=== PATIENT | female | born 1935 | race Caucasian/White ===

== ENCOUNTER 2018-06-03 08:45 | Emergency (ER) | payer OTHER ==
--- NOTE | 2018-06-03 09:17 | ER ---
Nurse's Notes [facility] Name: Shayy Gamble Age: 83 yrs Sex: Female : 1935 Arrival Date: 06/03/2018 Time: 08:48 Bed 13 Private MD: Buck Bermeo E Diagnosis: Mercer's Palsy (right) Presentation: 06/03 08:57 Presenting complaint: Patient states: started yesterday at 12 oclock i was trying to tw2 drink coffee with my sister and i noticed it was leaking out of the right side of my mouth, no arm or leg weakness. Transition of care: patient was not received from another setting of care. Onset of symptoms was June 02, 2018 at 12:00. Risk Assessment: Do you want to hurt yourself or someone else? Patient reports no desire to harm self or others. Initial Sepsis Screen: Does the patient meet any 2 criteria? No. Patient's initial sepsis screen is negative. Does the patient have a suspected source of infection? No. Patient's initial sepsis screen is negative. Care prior to arrival: None. pt states "i had no one to take me up here", pt educated as to 911 and the need for quick medical intervention". 08:57 Method Of Arrival: Wheelchair tw2 08:57 Acuity: ELLIS 3 tw2 Triage Assessment: 08:59 The onset of the patients symptoms was June 02, 2018 at 12:00. General: Appears in tw2 no apparent distress. obese, Behavior is calm, cooperative, appropriate for age. Pain: Denies pain. Neuro: Reports right sided facial droop, unable to blink right eye. Historical: - Allergies: 09:02 Sulfa (Sulfonamide Antibiotics); tw2 - PMHx: 09:02 Hyperlipidemia; Hypertension; tw2 - PSHx: 09:02 Cholecystectomy; ileostomy; tw2 - Immunization history:: Adult Immunizations. - Social history:: Smoking status: . - Ebola Screening: : Patient denies travel to an Ebola-affected area in the 21 days before illness onset. Screenin:15 Abuse screen: Denies threats or abuse. Denies injuries from another. Nutritional bp screening: No deficits noted. Tuberculosis screening: No symptoms or risk factors identified. Fall Risk None identified. Assessment: 09:00 General: Appears in no apparent distress. comfortable, Behavior is calm, cooperative, bp appropriate for age. Pain: Denies pain. Neuro: Level of Consciousness is awake, alert, obeys commands, Oriented to person, place, time, situation, Appropriate for age Marketing Developer are equal bilaterally Moves all extremities. Full function Facial droop on right, INCLUDING BROW. Cardiovascular: No deficits noted. Respiratory: Airway is patent Respiratory effort is even, unlabored, Respiratory pattern is regular, symmetrical. GI: No signs and/or symptoms were reported involving the gastrointestinal system. : No signs and/or symptoms were reported regarding the genitourinary system. EENT: No deficits noted. Derm: No deficits noted. Musculoskeletal: Circulation, motion, and sensation intact. Range of motion: intact in all extremities. 09:26 Reassessment: PT D/C HOME AMBULATORY WITH FAMILY, DX WITH MERCER'S PALSY. bp Vital Signs: 08:59 BP 143 / 50; Pulse 83; Resp 17; Temp 99.4(O); Pulse Ox 97% on R/A; Weight 95.25 kg (R); tw2 Height 5 ft. 4 in. (162.56 cm) (R); Pain 0/10; 08:59 Body Mass Index 36.05 (95.25 kg, 162.56 cm) tw2 ED Course: 08:48 Patient arrived in ED. mr 08:49 Buck Bermeo MD is Private Physician. mr 08:50 Ruben Olivera MD is Attending Physician. ps1 08:59 Triage completed. tw2 08:59 Arm band placed on. tw2 09:03 Bed in low position. Call light in reach. Adult w/ patient. color television console monitor on. Pulse tw2 ox on. NIBP on. 09:12 Luis Eduardo Galarza, AIMEE is Primary Nurse. bp 09:15 Buck Bermeo MD is Referral Physician. ps1 09:15 Larisa Mcnair MD is Referral Physician. ps1 09:26 No provider procedures requiring assistance completed. Patient did not have IV access bp during this emergency room visit. Administered Medications: No medications were administered Outcome: 09:16 Discharge ordered by . ps1 09:26 Discharged to home ambulatory, with family. bp 09:26 Condition: stable 09:26 Discharge instructions given to patient, Instructed on discharge instructions, follow up and referral plans. medication usage, Demonstrated understanding of instructions, follow-up care, medications, Prescriptions given X 3. 09:27 Patient left the ED. bp Signatures: Sánchez Jess mr Ludmila Wood RN RN tw2 Luis Eduardo Galarza RN RN bp Ruben Olivera MD MD ps1 Corrections: (The following items were deleted from the chart) 09:12 08:57 Stroke Activation: Symptom onset > 6 hours tw2 iw
--- NOTE | 2018-06-03 09:17 | EDPHYS ---
Physician Documentation [facility] Name: Shayy Gamble Age: 83 yrs Sex: Female : 1935 Arrival Date: 06/03/2018 Time: 08:48 Bed 13 Private MD: Buck Bermeo E ED Physician Ruben Olivera HPI: 06/03 09:11 This 83 yrs old Female presents to ER via Wheelchair with complaints of ps1 facial droop. 09:11 patient has one day of right facial droop, ptosis, with no sparing of the forehead. She ps1 had sinus congestion within the week. Family concerned for stroke. No extremity weakness. c/w Mercer's palsy. Historical: - Allergies: 09:02 Sulfa (Sulfonamide Antibiotics); tw2 - PMHx: 09:02 Hyperlipidemia; Hypertension; tw2 - PSHx: 09:02 Cholecystectomy; ileostomy; tw2 - Immunization history:: Adult Immunizations. - Social history:: Smoking status: . - Ebola Screening: : Patient denies travel to an Ebola-affected area in the 21 days before illness onset. ROS: 09:11 Constitutional: Negative for fever, chills, and weight loss, ENT: Negative for injury, ps1 pain, and discharge, Neck: Negative for injury, pain, and swelling, Cardiovascular: Negative for chest pain, palpitations, and edema, Respiratory: Negative for shortness of breath, cough, wheezing, and pleuritic chest pain, Abdomen/GI: Negative for abdominal pain, nausea, vomiting, diarrhea, and constipation, MS/Extremity: Negative for injury and deformity, Skin: Negative for injury, rash, and discoloration. 09:11 Eyes: Positive for ptosis right eye. 09:11 Neuro: Positive for facial droop on right. Exam: 09:11 Constitutional: This is a well developed, well nourished patient who is awake, alert, ps1 and in no acute distress. Head/Face: Normocephalic, atraumatic. Neck: Trachea midline, no thyromegaly or masses palpated, and no cervical lymphadenopathy. Supple, full range of motion without nuchal rigidity, or vertebral point tenderness. No Meningismus. Chest/axilla: Normal chest wall appearance and motion. Nontender with no deformity. No lesions are appreciated. Cardiovascular: Regular rate and rhythm. No gallops, murmurs, or rubs. Normal PMI, no JVD. No pulse deficits. Respiratory: Lungs have equal breath sounds bilaterally, clear to auscultation and percussion. No rales, rhonchi or wheezes noted. No increased work of breathing, no retractions or nasal flaring. Abdomen/GI: Soft, non-tender, with normal bowel sounds. No distension or tympany. No guarding or rebound. No evidence of tenderness throughout. Skin: Warm, dry with normal turgor. Normal color with no rashes, no lesions, and no evidence of cellulitis. MS/ Extremity: Pulses equal, no cyanosis. Neurovascular intact. Full, normal range of motion. 09:11 Eyes: no sparing of right forehead. right ptosis, right facial droop. . 09:11 Neuro: Cranial nerves: normal except CN VII, droop, ptosis, forehead palsy. 09:18 CT study not indicated or reported. Reason for not performing CT: [place] ps1 Vital Signs: 08:59 BP 143 / 50; Pulse 83; Resp 17; Temp 99.4(O); Pulse Ox 97% on R/A; Weight 95.25 kg (R); tw2 Height 5 ft. 4 in. (162.56 cm) (R); Pain 0/10; 08:59 Body Mass Index 36.05 (95.25 kg, 162.56 cm) tw2 MDM: 09:11 Data reviewed: vital signs, nurses notes, and as a result, I will discharge patient. ps1 Counseling: I had a detailed discussion with the patient and/or guardian regarding: the historical points, exam findings, and any diagnostic results supporting the discharge/admit diagnosis, the need for outpatient follow up. 09:16 Patient medically screened. ps1 Administered Medications: No medications were administered Disposition: 06/03/18 09:16 Discharged to Home. Impression: Mercer's Palsy (right). - Condition is Stable. - Discharge Instructions: Mercer Palsy, Adult, Eye Patch, Adult. - Prescriptions for Prednisone 20 mg Oral Tablet - take 3 tablet by ORAL route once daily for 5 days; 15 tablet. Acyclovir 800 mg Oral Tablet - take 1 tablet by ORAL route 5 times per day for 10 days; 50 tablet. Erythromycin 5 mg/gram (0.5 %) Ophthalmic Ointment - apply 1 ribbon by OPHTHALMIC route every 8 hours; 1 tube. - Medication Reconciliation Form, Thank You Letter, Antibiotic Education, Prescription Opioid Use form. - Follow up: Buck Bermeo MD; When: As needed; Reason: Recheck today's complaints, Continuance of care, Re-evaluation by your physician. Follow up: Larisa Mcnair MD; When: 1 week; Reason: Further diagnostic work-up, Recheck today's complaints, Continuance of care, Re-evaluation by your physician. - Problem is new. - Symptoms are unchanged. Signatures: Ludmila Wood RN RN tw2 Luis Eduardo Galarza RN RN bp Ruben Olivera MD MD ps1 Corrections: (The following items were deleted from the chart) 09:27 09:16 06/03/2018 09:16 Discharged to Home. Impression: Mercer's Palsy (right). Condition bp is Stable. Forms are Medication Reconciliation Form, Thank You Letter, Antibiotic Education, Prescription Opioid Use. Follow up: Buck Bermeo; When: As needed; Reason: Recheck today's complaints, Continuance of care, Re-evaluation by your physician. Follow up: Larisa Mcnair; When: 1 week; Reason: Further diagnostic work-up, Recheck today's complaints, Continuance of care, Re-evaluation by your physician. Problem is new. Symptoms are unchanged. ps1
[2018-06-03 09:31] VITALS: BP 143/50; TEMP 99.4; O2SAT 97
== END 2018-06-03 09:27 | disposition home or self-care (01) ==
LOC: ER 08:45
DX: G51.0 Bell's palsy (principal); E78.5 Hyperlipidemia, unspecified; I10 Essential (primary) hypertension; Z88.2 Allergy status to sulfonamides
CPT/HCPCS: 99284

== ENCOUNTER 2020-12-15 04:25 | Emergency (ER) | payer OTHER ==
[2020-12-15 05:30] LABS: Absolute Lymphocytes (CBC) 0.5 K/uL (0.7-4.9); Basophils % 0.4 % (0-1.3); Hematocrit 38.6 % (36.0-45.0); Lymphocytes % 6.4 % (15.3-44.8); MPV 9.9 fL (7.6-11.3); RBC Red Blood Cell Count 3.83 M/uL (3.86-4.86)
[2020-12-15 06:25] LABS: Protime INR 1.33
[2020-12-15] MEDS ORDERED: NA CHLORIDE 0.9% 1,000 ML ONE (06:27)
[2020-12-15 06:30] LABS: ALT/SGPT 21 U/L (12-78); AST/SGOT 20 U/L (15-37); Albumin 2.2 g/dL (3.4-5.0); Alkaline Phosphatase 78 U/L (45-117); BUN Blood Urea Nitrogen 59 mg/dL (7-18); Bicarbonate 23 mmol/L (21-32); Bilirubin Direct 1.2 mg/dL (0-0.2); Bilirubin Total 2.1 mg/dL (0.2-1.0); Glucose Level 70 mg/dL (74-106); Magnesium 1.9 mg/dL (1.8-2.4); NT PRO-BNP 2582 pg/mL (<450); Potassium 3.1 mmol/L (3.5-5.1); Protein, Total 6.2 g/dL (6.4-8.2); Sodium Level 140 mmol/L (136-145); Troponin (Emerg Dept Use Only) < 0.02 ng/mL (0.0-0.045)
[2020-12-15 06:34] LABS: Urine Appearance TURBID (Clear); Urine Bacteria >50 /HPF (<20); Urine Bilirubin 1+ (Negative); Urine Blood 3+ (Negative); Urine Color DK YELLOW (Yellow); Urine Glucose NEGATIVE (Negative); Urine Microscopic Reflex NO UMIC; Urine Protein 2+ (Negative); Urine RBC 20-50 /HPF (NONE SEEN)
--- NOTE | 2020-12-15 07:08 | ER ---
Nurse's Notes [facility] Name: Shayy Gamble Age: 85 yrs Sex: Female : 1935 Arrival Date: 12/15/2020 Time: 04:29 Bed DIS11 Private MD: Diagnosis: Urinary tract infection. Chronic renal disease. Chronic pain right hip. Presentation: 12/15 04:29 Chief complaint: Patient states: patient presents to the ED from home for generalized ms4 weakness s/p fall. patient reports she "twisted" her hip Friday and has not been able to walk on it since. patient has reported fevers and family reports confusion and is concerned for possible UTI. patient alert and oriented x 3 upon arrival. Coronavirus screen: Vaccine status: Patient reports being unvaccinated. Client denies travel out of the [place] in the last 14 days. At this time, the client does not indicate any symptoms associated with coronavirus-19. Ebola Screen: Patient negative for fever greater than or equal to 101.5 degrees Fahrenheit, and additional compatible Ebola Virus Disease symptoms Patient denies exposure to infectious person. Patient denies travel to an Ebola-affected area in the 21 days before illness onset. No symptoms or risks identified at this time. Initial Sepsis Screen: Does the patient meet any 2 criteria? No. Patient's initial sepsis screen is negative. Does the patient have a suspected source of infection? No. Patient's initial sepsis screen is negative. Risk Assessment: Do you want to hurt yourself or someone else? Patient reports no desire to harm self or others. Onset of symptoms was December 11, 2020. 04:29 Method Of Arrival: EMS: [facility] ms4 04:29 Acuity: ELLIS 3 ms4 Triage Assessment: 04:36 General: Appears in no apparent distress. Behavior is calm, cooperative, appropriate ms4 for age. Pain: Complains of pain in right hip. Cardiovascular: No deficits noted. Respiratory: No deficits noted. GI: Reports diarrhea. : No deficits noted. Historical: - Allergies: 04:34 Sulfa (Sulfonamide Antibiotics); ms4 - Home Meds: 04:34 Unable to obtain [Active]; ms4 - PSHx: 04:34 Unable to Obtain; ms4 - Immunization history:: Adult Immunizations up to date, Client reports having NOT received the Covid vaccine. - Social history:: Smoking status: Patient denies any tobacco usage or history of. Screenin:13 Abuse screen: Denies threats or abuse. Denies injuries from another. Nutritional ms4 screening: No deficits noted. Tuberculosis screening: No symptoms or risk factors identified. Fall Risk None identified. Assessment: 06:12 Reassessment: No changes from previously documented assessment. Patient and/or family ms4 updated on plan of care and expected duration. Pain level reassessed. Patient is alert, oriented x 3, equal unlabored respirations, skin warm/dry/pink. General: Appears in no apparent distress. Behavior is calm, cooperative. Pain: Denies pain. Neuro: No deficits noted. Cardiovascular: No deficits noted. Respiratory: No deficits noted. GI: Reports diarrhea. 07:00 Reassessment: PT TBDC AFTER IV ABX COMPLETION. bp Vital Signs: 04:29 BP 137 / 70; Pulse 84; Resp 18; Temp 98.2; Pulse Ox 94% on R/A; Weight 90.72 kg; Height ms4 5 ft. 4 in. (162.56 cm); Pain 6/10; 06:27 BP 114 / 63; Pulse 78; Resp 18; Pulse Ox 98% on R/A; Pain 0/10; ms4 08:00 BP 132 / 78; Pulse 87; Resp 17; Temp 98.5; Pulse Ox 98% ; bp 04:29 Body Mass Index 34.33 (90.72 kg, 162.56 cm) ms4 ED Course: 04:29 Patient arrived in ED. ms4 04:34 Triage completed. ms4 04:36 Arm band placed on right wrist. ms4 05:00 Luisito Rojo MD is Attending Physician. pkl 06:06 Hip Right 2 View XRAY In Process Unspecified. EDMS 06:13 Patient has correct armband on for positive identification. ms4 06:13 Inserted saline lock: 20 gauge in left forearm, using aseptic technique. Blood ms4 collected. 06:13 Straight cath inserted, using sterile technique, 14 Fr. Specimen obtained. ms4 06:13 No provider procedures requiring assistance completed. ms4 07:22 Luis Eduardo Galarza, RN is Primary Nurse. bp 08:59 IV discontinued, intact, bleeding controlled, No redness/swelling at site. Pressure bp dressing applied. Administered Medications: 06:05 CANCELLED (Duplicate Order): NS 0.9% 1000 ml IV at 125 ml/hr continuous pkl 06:07 Drug: NS 0.9% 1000 ml Route: IV; Rate: 1000 ml; Site: left forearm; ms4 09:00 Follow up: IV Status: Completed infusion; IV Intake: 1000ml bp 07:02 Drug: K-Dur (potassium chloride) 40 mEq Route: PO; ms4 08:09 Follow up: Response: No adverse reaction bp 07:02 Drug: Ciprofloxacin 400 mg Volume: 200 ml; Route: IVPB; Infused Over: 60 mins; Site: ms4 left forearm; 09:00 Follow up: IV Status: Completed infusion; IV Intake: 200ml bp Intake: 09:00 IV: 1000ml; Total: 1000ml. bp 09:00 IV: 200ml; Total: 1200ml. bp Outcome: 07:07 Discharge ordered by MD. pkl 08:10 Discharged to home bp 08:10 Condition: stable 08:10 Discharge instructions given to patient, Instructed on discharge instructions, follow up and referral plans. medication usage, Demonstrated understanding of instructions, follow-up care, medications, Prescriptions given X 1. 09:00 Discharged to home via wheelchair, with family. bp 09:00 Patient left the ED. bp Addendum: 12/18/2020 19:04 Addendum: Culture Results: Positive urine culture. No further action required. Bacteria s s sensitive to prescribed antibiotic. Signatures: Dispatcher [employer] EDMS Luisito Rojo MD MD pkXin Rodriguez RN RN ss Peltier, Brian, RN RN bp Ryanne Morrell RN RN ms4
--- NOTE | 2020-12-15 07:08 | EDPHYS ---
Physician Documentation [facility] Name: Shayy Gamble Age: 85 yrs Sex: Female : 1935 Arrival Date: 12/15/2020 Time: 04:29 Bed DIS11 Private MD: ED Physician Luisito Rojo HPI: 12/15 05:47 This 85 yrs old Female presents to ER via EMS with complaints of General pkl Weakness. 05:47 Patient complained of generalized weakness for 3 days. Said she twisted her right hip pkl and has been having difficulty ambulating. Appetite has decreased and not eating well. Historical: - Allergies: 04:34 Sulfa (Sulfonamide Antibiotics); ms4 - Home Meds: 04:34 Unable to obtain [Active]; ms4 - PSHx: 04:34 Unable to Obtain; ms4 - Immunization history:: Adult Immunizations up to date, Client reports having NOT received the Covid vaccine. - Social history:: Smoking status: Patient denies any tobacco usage or history of. ROS: 05:47 Eyes: Negative for injury, pain, redness, and discharge, ENT: Negative for injury, pkl pain, and discharge, Neck: Negative for injury, pain, and swelling, Cardiovascular: Negative for chest pain, palpitations, and edema, Respiratory: Negative for shortness of breath, cough, wheezing, and pleuritic chest pain, Abdomen/GI: Negative for abdominal pain, nausea, vomiting, diarrhea, and constipation, Back: Negative for injury and pain, : Negative for injury, bleeding, discharge, and swelling, MS/Extremity: Negative for injury and deformity, Skin: Negative for injury, rash, and discoloration. 05:47 Neuro: Positive for generalized weakness. Exam: 05:57 Head/Face: Normocephalic, atraumatic. Eyes: Pupils equal round and reactive to light, pkl extra-ocular motions intact. Lids and lashes normal. Conjunctiva and sclera are non-icteric and not injected. Cornea within normal limits. Periorbital areas with no swelling, redness, or edema. ENT: Nares patent. No nasal discharge, no septal abnormalities noted. Tympanic membranes are normal and external auditory canals are clear. Oropharynx with no redness, swelling, or masses, exudates, or evidence of obstruction, uvula midline. Mucous membranes moist. Neck: Trachea midline, no thyromegaly or masses palpated, and no cervical lymphadenopathy. Supple, full range of motion without nuchal rigidity, or vertebral point tenderness. No Meningismus. Chest/axilla: Normal chest wall appearance and motion. Nontender with no deformity. No lesions are appreciated. Cardiovascular: Regular rate and rhythm with a normal S1 and S2. No gallops, murmurs, or rubs. Normal PMI, no JVD. No pulse deficits. Respiratory: Lungs have equal breath sounds bilaterally, clear to auscultation and percussion. No rales, rhonchi or wheezes noted. No increased work of breathing, no retractions or nasal flaring. Abdomen/GI: Soft, non-tender, with normal bowel sounds. No distension or tympany. No guarding or rebound. No evidence of tenderness throughout. Back: No spinal tenderness. No costovertebral tenderness. Full range of motion. Skin: Warm, dry with normal turgor. Normal color with no rashes, no lesions, and no evidence of cellulitis. 05:57 Musculoskeletal/extremity: Extremities: grossly normal except: noted in the right hip: pain, decreased ROM. 05:57 Skin: Exam negative for rash. 05:57 Neuro: Orientation: appropriate for stated age, Mentation: appropriate for stated age, responsive to voice able to follow commands, Cranial nerves: grossly normal, Motor: moves all fours. Vital Signs: 04:29 BP 137 / 70; Pulse 84; Resp 18; Temp 98.2; Pulse Ox 94% on R/A; Weight 90.72 kg; Height ms4 5 ft. 4 in. (162.56 cm); Pain 6/10; 06:27 BP 114 / 63; Pulse 78; Resp 18; Pulse Ox 98% on R/A; Pain 0/10; ms4 08:00 BP 132 / 78; Pulse 87; Resp 17; Temp 98.5; Pulse Ox 98% ; bp 04:29 Body Mass Index 34.33 (90.72 kg, 162.56 cm) ms4 MDM: 05:00 Patient medically screened. pkl 06:59 Data reviewed: vital signs, nurses notes, lab test result(s), EKG, radiologic studies, pkl plain films. ED course: Patient feeling better. Discussed lab results with patient. Advised to follow up with PCP next week. To return if necessary. Patient understood instructions. 12/15 04:57 Order name: Basic Metabolic Panel; Complete Time: 06:42 ms4 12/15 04:57 Order name: CBC with Diff; Complete Time: 19:03 ms4 12/15 04:57 Order name: LFT's; Complete Time: 06:42 ms4 12/15 04:57 Order name: Magnesium; Complete Time: 06:42 ms4 12/15 04:57 Order name: NT PRO-BNP; Complete Time: 06:42 ms4 12/15 04:57 Order name: PT-INR; Complete Time: 06:42 ms4 12/15 04:57 Order name: Troponin (emerg Dept Use Only); Complete Time: 06:42 ms4 12/15 05:23 Order name: Urine Culture; Complete Time: 19:03 pkl 12/15 05:36 Order name: Manual Differential; Complete Time: 19:03 EDMS 12/15 05:56 Order name: Lactate; Complete Time: 06:42 pkl 12/15 05:56 Order name: Urine Microscopic Only; Complete Time: 06:42 bb 12/15 06:06 Order name: Urinalysis; Complete Time: 06:42 EDMS 12/15 04:57 Order name: EKG; Complete Time: 04:57 ms4 12/15 04:57 Order name: Cardiac monitoring; Complete Time: 05:14 ms4 12/15 04:57 Order name: EKG - Nurse/Tech; Complete Time: 05:14 ms4 12/15 04:57 Order name: IV Saline Lock; Complete Time: 05:14 ms4 12/15 04:57 Order name: Labs collected and sent; Complete Time: 05:14 ms4 12/15 04:57 Order name: O2 Per Protocol; Complete Time: 05:14 ms4 12/15 04:57 Order name: O2 Sat Monitoring; Complete Time: 05:14 ms4 12/15 04:57 Order name: Urine Dipstick-Ancillary (obtain specimen); Complete Time: 06:02 ms4 12/15 04:57 Order name: Straight Cath - Urine; Complete Time: 05:49 ms4 12/15 05:23 Order name: Hip Right 2 View XRAY; Complete Time: 19:03 pkl 12/15 07:29 Order name: SARS-COV-2 RT PCR; Complete Time: 19:03 EDMS Administered Medications: 06:05 CANCELLED (Duplicate Order): NS 0.9% 1000 ml IV at 125 ml/hr continuous pkl 06:07 Drug: NS 0.9% 1000 ml Route: IV; Rate: 1000 ml; Site: left forearm; ms4 09:00 Follow up: IV Status: Completed infusion; IV Intake: 1000ml bp 07:02 Drug: K-Dur (potassium chloride) 40 mEq Route: PO; ms4 08:09 Follow up: Response: No adverse reaction bp 07:02 Drug: Ciprofloxacin 400 mg Volume: 200 ml; Route: IVPB; Infused Over: 60 mins; Site: ms4 left forearm; 09:00 Follow up: IV Status: Completed infusion; IV Intake: 200ml bp Disposition Summary: 12/15/20 07:07 Discharge Ordered Location: Home pkl Problem: new pkl Symptoms: have improved pkl Condition: Stable pkl Diagnosis - Urinary tract infection. Chronic renal disease. Chronic pain right hip. pkl Followup: pkl - With: Private Physician - When: 1 week - Reason: Re-evaluation by your physician Discharge Instructions: - Discharge Summary Sheet pkl Forms: - Medication Reconciliation Form pkl - Thank You Letter pkl - Antibiotic Education pkl - Prescription Opioid Use pkl Prescriptions: - Cipro 500 mg Oral Tablet - take 1 tablet by ORAL route every 12 hours for 7 days; 14 tablet; Refills: 0, pkl Product Selection Permitted Signatures: Dispatcher [employer] EDMS Luisito Rojo MD MD pkl Ryanne Morrell RN RN ms4 Luis Eduardo Galarza RN bp Corrections: (The following items were deleted from the chart) 05:48 05:16 Hip Right 2 View+RAD.RAD.BRZ ordered. EDMS EDMS 06:05 05:23 NS 0.9% 1000 ml IV at 125 ml/hr continuous ordered. pkl pkl 06:34 05:52 CORONAVIRUS+MR.LAB.BRZ ordered. EDMS EDMS 07:03 05:56 BLOOD CULTURE*+BA.LAB.BRZ ordered. EDMS EDMS
[2020-12-15 07:25] LABS: Blood Morphology Comment NOTED (NOT SEEN); Platelet Estimate DECR; Polychromasia SLIGHT
[2020-12-15] MEDS ORDERED: CIPROFLOXACIN 400mg IV 400 MG/200 ML BAG IV ONE (07:25)
[2020-12-15] MEDS ORDERED: POTASSIUM CL SA 10 MEQ TAB PO ONE (07:25)
--- NOTE | 2020-12-15 07:42 | EKG ---
Test Date: 2020-12-15 Test Time: 05:11:10 Manager Testing: NAYELI MEASUREMENT RESULTS: Intervals: Rate: 96 IL: 174 QRSD: 74 QT: 326 QTc: 411 [place]: P: 57 IL: 174 QRS: -7 T: 95 INTERPRETIVE STATEMENTS: Sinus rhythm with premature atrial complexes Inferior infarct, age undetermined Anterior infarct, age undetermined Abnormal ECG Compared to ECG 02/03/2015 15:45:13 Myocardial infarct finding now present Prolonged QT interval no longer present Electronically Signed On 12-15-20 07:41:43 CDT by Juan Diego Albarado
--- NOTE | 2020-12-15 08:41 | RAD REPORT ---
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 No fracture, dislocation or AVN. If patient pain persists or progresses, consider CT or MR imaging of the right hip.
[2020-12-15 09:07] VITALS: O2SAT 98
[2020-12-15 09:09] VITALS: BP 132/78; TEMP 98.5
== END 2020-12-15 09:00 | disposition home or self-care (01) ==
LOC: ER 04:25
DX: N39.0 Urinary tract infection, site not specified (principal); M25.551 Pain in right hip; N18.9 Chronic kidney disease, unspecified; Z88.2 Allergy status to sulfonamides; Z20.822 Contact with and (suspected) exposure to COVID-19
CPT/HCPCS: 96365; 96361; 93005; 87088; 85025; 87086; 80048; 36415; 83735; 85610; 80076; 83605; 87077; 87186; 84484; 83880; 73502; 51702; 99284; 96366; U0003; J7030; J0744; 81003; 81015

== ENCOUNTER 2022-05-05 13:03 | Emergency (ER) | payer OTHER ==
[2022-05-05] MEDS ORDERED: cloNIDine HCL 0.1 MG TAB ONE (13:52)
[2022-05-05] MEDS ORDERED: KETOROLAC 30 MG/ML INJ ONE (14:07)
[2022-05-05 14:52] LABS: Absolute Lymphocytes (CBC) 1.8 K/uL (0.7-4.9); Lymphocytes % 38.6 % (15.3-44.8); MCV 99.7 fL (80-100); MPV 7.7 fL (7.6-11.3); RBC Red Blood Cell Count 3.91 M/uL (3.86-4.86)
[2022-05-05 15:14] LABS: Magnesium 1.5 mg/dL (1.6-2.4); Potassium 3.2 mmol/L (3.5-5.1)
[2022-05-05] MEDS ORDERED: MAGNESIUM SULFATE 1 gm IVPB 1 GM/100 ML BAG IV ONE (15:44)
[2022-05-05] MEDS ORDERED: AMLODIPINE 10 MG TAB ONE (15:44)
[2022-05-05] MEDS ORDERED: POTASSIUM 25 MEQ EFFERV TAB ONE (15:44)
--- NOTE | 2022-05-05 15:56 | EDPHYS ---
Physician Documentation [facility] Name: Shayy Gamble Age: 87 yrs Sex: Female : 1935 Arrival Date: 05/05/2022 Time: 13:05 Bed 5 Private MD: ED Physician Nino Lyn HPI: 05/05 13:45 This 87 yrs old Female presents to ER via Wheelchair with complaints of High Blood cp Pressure. 13:45 The patient has elevated blood pressure and discovered this at home, with a home cp device. Onset: The symptoms/episode began/occurred today. 13:45 Severity of symptoms: At its worst the blood pressure was 191 mm Hg, in the emergency cp department the blood pressure is are actually worse, 199 mm Hg. 13:45 Associated signs and symptoms: Pertinent negatives: chest pain, dizziness, headache, cp lightheadedness, visual changes, vomiting, weakness. Historical: - Allergies: 13:35 Sulfa (Sulfonamide Antibiotics); vg1 - Home Meds: 13:35 Cholestyramine Light oral [Active]; carvedilol oral [Active]; vg1 - PMHx: 13:35 Hyperlipidemia; Hypertension; vg1 - Immunization history:: Client reports having NOT received the Covid vaccine. - Social history:: Smoking status: Patient denies any tobacco usage or history of. ROS: 13:50 Constitutional: Negative for body aches, chills, fever, poor PO intake. cp 13:50 Eyes: Negative for injury, pain, redness, and discharge. cp 13:50 ENT: Negative for drainage from ear(s), ear pain, sore throat, difficulty swallowing, difficulty handling secretions. 13:50 Cardiovascular: Negative for chest pain, edema, palpitations. 13:50 Respiratory: Negative for cough, shortness of breath, wheezing. 13:50 Abdomen/GI: Negative for abdominal pain, vomiting, diarrhea, constipation. 13:50 : Negative for urinary symptoms. 13:50 Neuro: Negative for altered mental status, dizziness, headache, weakness. 13:50 All other systems are negative. Exam: 13:55 Constitutional: The patient appears in no acute distress, alert, awake, cp non-diaphoretic, non-toxic, well developed, well nourished, anxious. 13:55 Head/Face: Normocephalic, atraumatic. cp 13:55 Eyes: Periorbital structures: appear normal, Conjunctiva: normal, no exudate, no injection, Sclera: no appreciated abnormality, Lids and lashes: appear normal, bilaterally. 13:55 ENT: External ear(s): are unremarkable, Nose: is normal, Mouth: Lips: moist, Oral mucosa: pink and intact, moist, Posterior pharynx: Airway: no evidence of obstruction, patent. 13:55 Neck: ROM/movement: is normal, is supple, without pain, no range of motions limitations. 13:55 Chest/axilla: Inspection: normal. 13:55 Cardiovascular: Rate: normal, Rhythm: regular, Edema: is not appreciated, JVD: is not appreciated. 13:55 Respiratory: the patient does not display signs of respiratory distress, Respirations: normal, no use of accessory muscles, no retractions, labored breathing, is not present, Breath sounds: are clear throughout, no decreased breath sounds, no stridor, no wheezing. 13:55 Abdomen/GI: Inspection: abdomen appears normal, Palpation: abdomen is soft and non-tender, in all quadrants. 13:55 Back: pain, is absent, ROM is normal. 13:55 Neuro: Orientation: to person, place \T\ time. Mentation: is normal, Cerebellar function: is grossly normal, Motor: moves all fours, strength is normal, Sensation: is normal. Vital Signs: 13:32 BP 199 / 118; Pulse 77; Resp 18; Temp 98.6(TE); Pulse Ox 96% on R/A; Weight 83.01 kg; vg1 Height 5 ft. 3 in. (160.02 cm); Pain 0/10; 14:00 BP 194 / 82; Pulse 67; Resp 20 S; Pulse Ox 98% on R/A; aa5 14:56 BP 175 / 80; Pulse 66; Resp 19 S; Pulse Ox 99% on R/A; aa5 16:00 BP 159 / 82; Pulse 62; Resp 18 S; Temp 97.8(TE); Pulse Ox 99% on R/A; aa5 13:32 Body Mass Index 32.42 (83.01 kg, 160.02 cm) vg1 MDM: 13:39 Patient medically screened. cp 14:00 Differential diagnosis: hypertensive crisis, Malignant HTN, CVA, intracerebral cp hemorrhage, acute ID. 15:55 Data reviewed: vital signs, nurses notes, lab test result(s), EKG. 15:55 Consideration of Admission/Observation Escalation of care including cp admission/observation considered. I considered the following discharge prescriptions or medication management in the emergency department Medications were administered in the Emergency Department. See MAR. Test considered but Not performed: CT: CT head. Care significantly affected by the following chronic conditions: Hypertension. Counseling: I had a detailed discussion with the patient and/or guardian regarding: the historical points, exam findings, and any diagnostic results supporting the discharge/admit diagnosis, the presence of at least one elevated blood pressure reading (>120/80) during this emergency department visit, lab results, the need for outpatient follow up, a family practitioner, to return to the emergency department if symptoms worsen or persist or if there are any questions or concerns that arise at home. 05/05 13:39 Order name: Basic Metabolic Panel; Complete Time: 15:19 05/05 15:19 Interpretation: Normal except: K 3.2; CL 110; GFR 58. 05/05 13:39 Order name: CBC with Diff; Complete Time: 15:01 05/05 13:39 Order name: Magnesium; Complete Time: 15:19 05/05 15:19 Interpretation: Abnormal: MG 1.5. 05/05 13:37 Order name: EKG; Complete Time: 13:37 05/05 13:37 Order name: EKG - Nurse/Tech; Complete Time: 14:01 05/05 13:39 Order name: Cardiac monitoring; Complete Time: 14:00 05/05 13:39 Order name: IV Saline Lock; Complete Time: 14:01 05/05 13:39 Order name: Labs collected and sent; Complete Time: 14:18 05/05 13:39 Order name: O2 Per Protocol; Complete Time: 14:01 05/05 13:39 Order name: O2 Sat Monitoring; Complete Time: 14:01 cp Administered Medications: 14:01 Drug: cloNIDine 0.1 mg Route: PO; ld1 14:56 Follow up: Response: No adverse reaction aa5 15:30 Drug: Magnesium Sulfate 1 grams Route: IVPB; Infused Over: 1 hrs; Site: right hand; aa5 16:30 Follow up: IV Status: Completed infusion aa5 15:30 Drug: Potassium Effervescent Tablet 50 mEq Route: PO; aa5 16:30 Follow up: Response: No adverse reaction aa5 16:02 Drug: amLODIPine 10 mg Route: PO; aa5 16:30 Follow up: Response: No adverse reaction aa5 Disposition Summary: 05/05/22 15:55 Discharge Ordered Location: Home cp Problem: chronic cp Symptoms: have improved cp Condition: Stable cp Diagnosis - Hypertensive heart disease without heart failure cp - Hypokalemia cp - Hypomagnesemia cp Followup: cp - With: Private Physician - When: 2 - 3 days - Reason: Recheck today's complaints Discharge Instructions: - Discharge Summary Sheet cp - Hypertension, Adult cp - Aspirin and Your Heart cp - Form - Blood Pressure Record Sheet cp - Hypomagnesemia cp - Hypokalemia cp - How to Take Your Blood Pressure cp Forms: - Medication Reconciliation Form cp - Thank You Letter cp - Antibiotic Education cp - Prescription Opioid Use cp Prescriptions: - amlodipine 5 mg Oral tablet - take 1 tablet by ORAL route once daily; 30 tablet; Refills: 0, Product cp Selection Permitted Addendum: 05/07/2022 01:04 Co-signature as Attending Physician, Nino Lyn MD I reviewed the patient's care r n provided by the Advanced Practice Provider and agree with the diagnosis and treatment plan. Signatures: Dispatcher [employer] Nino Narvaez MD MD rn Calderon, Audri RN RN aa5 Eliud Thomas PA PA cp Garcia, Victoria, RN RN vg1 Keke Blackman RN RN ld1
--- NOTE | 2022-05-05 15:56 | ER ---
Nurse's Notes [facility] Name: Shayy Gamble Age: 87 yrs Sex: Female : 1935 Arrival Date: 05/05/2022 Time: 13:05 Bed 5 Private MD: Diagnosis: Hypertensive heart disease without heart failure;Hypokalemia;Hypomagnesemia Presentation: 05/05 13:32 Chief complaint: Patient states: High BP that began on 05/02/22, this morning vg1 of 191 Systolic; denies CP, SOB or headache or NV. Coronavirus screen: Vaccine status: Patient reports being unvaccinated. Client denies travel out of the [place] in the last 14 days. Ebola Screen: Patient negative for fever greater than or equal to 101.5 degrees Fahrenheit, and additional compatible Ebola Virus Disease symptoms Patient denies exposure to infectious person. Initial Sepsis Screen: Does the patient meet any 2 criteria? Yes Does the patient have a suspected source of infection? No. Patient's initial sepsis screen is negative. Risk Assessment: Do you want to hurt yourself or someone else? Patient reports no desire to harm self or others. Onset of symptoms was May 05, 2022. 13:32 Method Of Arrival: Wheelchair vg1 13:32 Acuity: ELLIS 2 vg1 Triage Assessment: 13:35 General: Appears comfortable, Behavior is calm, cooperative. Pain: Denies pain. Neuro: vg1 Level of Consciousness is awake, alert, obeys commands, Oriented to person, place, time, situation, Denies dizziness, headache. Cardiovascular: Denies chest pain, lightheadedness, shortness of breath. Historical: - Allergies: 13:35 Sulfa (Sulfonamide Antibiotics); vg1 - Home Meds: 13:35 Cholestyramine Light oral [Active]; carvedilol oral [Active]; vg1 - PMHx: 13:35 Hyperlipidemia; Hypertension; vg1 - Immunization history:: Client reports having NOT received the Covid vaccine. - Social history:: Smoking status: Patient denies any tobacco usage or history of. Screenin:48 [facility] ED Fall Risk Assessment (Adult) History of falling in the last 3 months, ld1 including since admission No falls in past 3 months (0 pts). Abuse screen: Denies threats or abuse. Denies injuries from another. Nutritional screening: No deficits noted. Tuberculosis screening: No symptoms or risk factors identified. Assessment: 13:40 General: Appears comfortable, Behavior is calm, cooperative. Pain: Denies pain. Neuro: aa5 Level of Consciousness is awake, alert, obeys commands, Oriented to person, place, time, situation. Cardiovascular: Heart tones S1 S2 present Rhythm is regular. Respiratory: Airway is patent Respiratory effort is even, unlabored, Respiratory pattern is regular, symmetrical. GI: No signs and/or symptoms were reported involving the gastrointestinal system. : No signs and/or symptoms were reported regarding the genitourinary system. EENT: No signs and/or symptoms were reported regarding the EENT system. Derm: Skin is pink, warm \T\ dry. Musculoskeletal: Range of motion: intact in all extremities. 14:00 Reassessment: Patient is alert, oriented x 3, equal unlabored respirations, skin aa5 warm/dry/pink. 14:56 Reassessment: Patient is alert, oriented x 3, equal unlabored respirations, skin aa5 warm/dry/pink. 14:56 Reassessment: Awaiting lab results . aa5 16:00 Reassessment: Patient is alert, oriented x 3, equal unlabored respirations, skin aa5 warm/dry/pink. Awaiting Magnesium infusion to complete for d/c home. . Vital Signs: 13:32 BP 199 / 118; Pulse 77; Resp 18; Temp 98.6(TE); Pulse Ox 96% on R/A; Weight 83.01 kg; vg1 Height 5 ft. 3 in. (160.02 cm); Pain 0/10; 14:00 BP 194 / 82; Pulse 67; Resp 20 S; Pulse Ox 98% on R/A; aa5 14:56 BP 175 / 80; Pulse 66; Resp 19 S; Pulse Ox 99% on R/A; aa5 16:00 BP 159 / 82; Pulse 62; Resp 18 S; Temp 97.8(TE); Pulse Ox 99% on R/A; aa5 13:32 Body Mass Index 32.42 (83.01 kg, 160.02 cm) vg1 ED Course: 13:05 Patient arrived in ED. as 13:18 Eliud Thomas PA is PHCP. cp 13:18 Nino Lyn MD is Attending Physician. cp 13:35 Triage completed. vg1 13:35 Arm band placed on. vg1 13:38 Sherita Ramírez, RN is Primary Nurse. aa5 13:40 Patient has correct armband on for positive identification. Placed in gown. Bed in low aa5 position. Call light in reach. Side rails up X2. Client placed on continuous cardiac and pulse oximetry monitoring. NIBP monitoring applied. 15:30 Inserted saline lock: 22 gauge in right hand, using aseptic technique. aa5 16:48 No provider procedures requiring assistance completed. IV discontinued, intact, ld1 bleeding controlled, No redness/swelling at site. Administered Medications: 14:01 Drug: cloNIDine 0.1 mg Route: PO; ld1 14:56 Follow up: Response: No adverse reaction aa5 15:30 Drug: Magnesium Sulfate 1 grams Route: IVPB; Infused Over: 1 hrs; Site: right hand; aa5 16:30 Follow up: IV Status: Completed infusion aa5 15:30 Drug: Potassium Effervescent Tablet 50 mEq Route: PO; aa5 16:30 Follow up: Response: No adverse reaction aa5 16:02 Drug: amLODIPine 10 mg Route: PO; aa5 16:30 Follow up: Response: No adverse reaction aa5 Medication: 14:58 VIS not applicable for this client. aa5 Outcome: 15:55 Discharge ordered by MD. cp 16:48 Discharged to home via wheelchair. ld1 16:48 Condition: stable 16:48 Discharge instructions given to patient, Instructed on discharge instructions, follow up and referral plans. medication usage, Demonstrated understanding of instructions, follow-up care, medications, Prescriptions given X 1. 16:48 Patient left the ED. ld1 Signatures: Stella Soni as Sherita Ramírez, RN RN aa5 Eliud Thomas PA PA cp Ladi Diallo, RN RN vg1 Keke Blackman RN RN ld1 Corrections: (The following items were deleted from the chart) 16:03 15:25 Magnesium Sulfate 1 grams IVPB in right hand over 1 hrs aa5 aa5
[2022-05-05 17:07] VITALS: TEMP 98.6
[2022-05-05 17:18] VITALS: BP 175/80; O2SAT 99
--- NOTE | 2022-05-06 16:51 | EKG ---
Test Date: 2022-05-05 Test Time: 13:56:21 [employer] Consultant: ROBERT MEASUREMENT RESULTS: Intervals: Rate: 69 SD: 192 QRSD: 82 QT: 398 QTc: 426 [place]: P: 63 SD: 192 QRS: 1 T: 40 INTERPRETIVE STATEMENTS: Normal sinus rhythm Normal ECG Compared to ECG 12/15/2020 05:11:10 Atrial premature complex(es) no longer present Myocardial infarct finding no longer present Electronically Signed On 05-06-22 16:50:12 [employer] by Ilia Malik
== END 2022-05-05 16:48 | disposition home or self-care (01) ==
LOC: ER 13:03
DX: I11.9 Hypertensive heart disease without heart failure (principal); E87.6 Hypokalemia; E83.42 Hypomagnesemia; Z88.2 Allergy status to sulfonamides
CPT/HCPCS: 96365; 93005; 85025; 80048; 36415; 83735; 99283; J3475

== ENCOUNTER 2022-10-08 10:14 | Inpatient (IN) | payer OTHER ==
[2022-10-08 10:45] LABS: Absolute Lymphocytes (CBC) 0.9 K/uL (0.7-4.9); Hematocrit 36.9 % (36.0-45.0); Lymphocytes % 8.1 % (15.3-44.8); MCV 100.7 fL (80-100); MPV 7.3 fL (7.6-11.3); RBC Red Blood Cell Count 3.66 M/uL (3.86-4.86)
[2022-10-08 12:31] LABS: Albumin 2.9 g/dL (3.4-5.0); Bilirubin Total 1.4 mg/dL (0.2-1.0); Potassium 4.1 mEq/L (3.5-5.1); Protein, Total 6.6 g/dL (6.4-8.2)
[2022-10-08 13:41] LABS: Specific Gravity 1.026 (1.005-1.030); Transitional Epithelial <5 /HPF (None Seen); Urine Bacteria 20-50 /HPF (<20); Urine Bilirubin NEGATIVE (Negative); Urine Blood Trace (Negative); Urine Clarity Extremely Turbid (Clear); Urine Color Light-Yellow (Yellow); Urine Glucose NEGATIVE (Negative); Urine Mucus 4+ /HPF (None Seen); Urine Protein 1+ (Negative); Urine Urobilinogen Normal (Normal)
--- NOTE | 2022-10-08 13:47 | RAD REPORT ---
EXAM DESCRIPTION: CT - Abdomen Pelvis W Contrast - 10/08/2022 12:53 pm CLINICAL HISTORY: ABD PAIN COMPARISON: CT ABD PELVIS W CONTRAST dated 09/21/2014; CT ABD PELVIS W CONTRAST dated 07/19/2013 TECHNIQUE: Thin cut axial CT imaging of the abdomen and pelvis was performed following intravenous a dministration of 100 mL Isovue 300. Multiplanar reformats were generated and reviewed. All CT scans are performed using dose optimization technique as appropriate and may include automated exposure control or mA/KV adjustment according to patient size. FINDINGS: No suspicious findings in the lung bases apart from bibasilar platelike atelectatic change s. The liver, spleen, and pancreas show no suspicious findings. Status post cholecystectomy. Prominent c ommon bile duct, measuring 7 millimeter distally with mild intrahepatic biliary ductal prominence, no nspecific, and could relate to reservoir effect. Severe right hydroureteronephrosis, with a 1.5 centimeter calculus present at the right vesicoureteri c junction. Other nonobstructing calculi seen along the right mid to lower renal pole, largest measur ing 1.4 centimeter at the lower pole. Pronounced right perinephric and periureteric fluid. Small flui d density posterior left renal cortical 7 millimeter cyst. No focal suspicious parenchymal lesions. Diastasis recti, with large ventral hernia containing portions of the stomach, pancreas, as well as s mall and large bowel. This appears progressive since the 2017 prior exam, without evidence of bowel o bstruction or wall thickening. No free air, free fluid or inflammatory stranding. No suspicious mass or bulky lymphadenopathy. The urinary bladder is without significant finding. No suspicious bony findings. IMPRESSION: Severe right hydroureteronephrosis with a 1.5 centimeter obstructing calculus at the rig ht vesicoureteral junction. Pronounced right perinephric and periureteric fluid, nonspecific. Other nonobstructing right renal calculi, up to 1.4 centimeter in greatest dimension. Enlarging ventral hernia, now containing larger portions of the stomach, nonobstructed small and larg e bowel, as well as portions of the pancreas. The findings were communicated to Patrick Duron on 10/08/2022 at 13:39 hours.
--- NOTE | 2022-10-08 14:02 | ER ---
Nurse's Notes [facility] Name: Shayy Gamble Age: 87 yrs Sex: Female : 1935 Arrival Date: 10/08/2022 Time: 10:14 Bed 8 Private MD: Sneha Douglsa Diagnosis: Calculus of ureter;Calculus of kidney with calculus of ureter;Acute Kidney Injury Presentation: 10/08 10:34 Chief complaint: Patient states: R sided abd pain and nausea after drinking cough 1 ss week ago. Denies diarrhea. Coronavirus screen: Client denies travel out of the [place] in the last 14 days. Ebola Screen: Patient denies exposure to infectious person. Patient denies travel to an Ebola-affected area in the 21 days before illness onset. Initial Sepsis Screen: Does the patient meet any 2 criteria? No. Patient's initial sepsis screen is negative. Does the patient have a suspected source of infection? No. Patient's initial sepsis screen is negative. Risk Assessment: Do you want to hurt yourself or someone else? Patient reports no desire to harm self or others. Onset of symptoms was September 29, 2022. 10:34 Method Of Arrival: Ambulatory ss 10:34 Acuity: ELLIS 3 ss Historical: - Allergies: 10:34 Sulfa (Sulfonamide Antibiotics); ss - PMHx: 10:34 Hyperlipidemia; Hypertension; ss - PSHx: 10:34 Cholecystectomy; ss - Immunization history:: Client reports having NOT received the Covid vaccine. - Social history:: Smoking status: Patient denies any tobacco usage or history of. Screenin:02 [facility] ED Fall Risk Assessment (Adult) History of falling in the last 3 months, ph including since admission No falls in past 3 months (0 pts) Confusion or Disorientation No (0 pts) Intoxicated or Sedated No (0 pts) Impaired Gait No (0 pts) Mobility Assist Device Used No (0 pt) Altered Elimination No (0 pt) Score/Fall Risk Level 0 - 2 = Low Risk Oriented to surroundings, Maintained a safe environment. Abuse screen:. Nutritional screening: No deficits noted. Tuberculosis screening: No symptoms or risk factors identified. Assessment: 11:02 General: Appears in no apparent distress. comfortable, well groomed, Behavior is calm, ph cooperative, appropriate for age. Pain: Complains of pain in right upper quadrant and right lower quadrant. Neuro: Level of Consciousness is awake, alert, obeys commands, Oriented to person, place, time, situation. Cardiovascular: Capillary refill < 3 seconds in bilateral fingers Patient's skin is warm and dry. Respiratory: Airway is patent Respiratory effort is even, unlabored. GI: Reports lower abdominal pain, nausea. Derm: Skin is pink, warm \T\ dry. Vital Signs: 10:34 BP 138 / 82; Pulse 82; Resp 16; Temp 98.8(TE); Pulse Ox 96% on R/A; Weight 75.3 kg; ss Height 5 ft. 4 in. ; Pain 0/10; 11:30 BP 110 / 72; Pulse 64; Resp 18; Pulse Ox 99% on R/A; ph 12:34 BP 102 / 63; Pulse 62; Resp 18; Pulse Ox 100% on R/A; ph 13:30 BP 108 / 70; Pulse 68; Resp 18; Pulse Ox 98% on R/A; ph 10:34 Body Mass Index 28.49 (75.30 kg, 162.56 cm) ss 10:34 Pain Scale: Adult ss ED Course: 10:16 Patient arrived in ED. mr 10:16 MisaelSneha is Private Physician. mr 10:19 Patrick Duron PA is PHCP. jmm 10:19 Rolo Lopez MD is Attending Physician. jmm 10:27 Keshia May, AIMEE is Primary Nurse. ph 10:34 Arm band placed on right wrist. ss 10:39 Triage completed. ss 11:03 Patient has correct armband on for positive identification. Bed in low position. Call ph light in reach. Side rails up X2. Pulse ox on. NIBP on. 11:03 No provider procedures requiring assistance completed. Inserted saline lock: 20 gauge ph in right antecubital area, using aseptic technique. 12:55 CT Abd/Pelvis - IV Contrast Only In Process Unspecified. EDMS 14:01 Kain Miller MD is Hospitalizing Provider. [facility] 14:32 Patient admitted, IV remains in place. ph Administered Medications: 14:32 Drug: Rocephin IV 1 grams Route: IV; Rate: calculated rate; Site: right antecubital; ph 14:40 Follow up: Response: No adverse reaction; IV Status: Infusion continued upon admission ph Medication: 11:03 VIS not applicable for this client. ph Outcome: 14:01 Decision to Hospitalize by Provider. [facility] 14:32 Patient left the ED. ph 14:32 Admitted to OR accompanied by nurse, family with patient, via stretcher, with chart. ph 14:32 Condition: stable 14:32 Instructed on the need for admit. Signatures: Dispatcher [employer] EDMS Patrick Duron PA PA jmm Rivera, Mary mr Xin Simmons, RN RN ss Keshia May RN RN ph Corrections: (The following items were deleted from the chart) 13:17 10:34 BP 138 / 82; Pulse 82bpm; Resp 16bpm; Pulse Ox 96% RA; Temp 98.8F Temporal; 75.3 ss kg; Height 6 ft. 4 in.; BMI: 20.2; Pain 0/10, Adult; ss
--- NOTE | 2022-10-08 14:02 | EDPHYS ---
Physician Documentation [facility] Name: Shayy Gamble Age: 87 yrs Sex: Female : 1935 Arrival Date: 10/08/2022 Time: 10:14 Bed 8 Private MD: Sneha Douglas ED Physician Rolo Lopez HPI: 10/08 10:30 This 87 yrs old Female presents to ER via Ambulatory with complaints of Back Pain. jmm 10:30 The patient presents with pain that is acute. The symptoms are located in the Right m flank. This is an 87-year-old female with history of hyperlipidemia and hypertension that presents emerged part with complaints of right flank pain beginning approximately a week ago. Denies fever, vomiting. States having some right lower abdominal pain as well.. Historical: - Allergies: 10:34 Sulfa (Sulfonamide Antibiotics); ss - PMHx: 10:34 Hyperlipidemia; Hypertension; ss - PSHx: 10:34 Cholecystectomy; ss - Immunization history:: Client reports having NOT received the Covid vaccine. - Social history:: Smoking status: Patient denies any tobacco usage or history of. ROS: 10:30 Constitutional: Negative for fever, chills, and weight loss, Cardiovascular: Negative jmm for chest pain, palpitations, and edema, Respiratory: Negative for shortness of breath, cough, wheezing, and pleuritic chest pain. 10:30 Abdomen/GI: Positive for abdominal pain. 10:30 Back: Positive for flank pain, on the right. 10:30 All other systems are negative. Exam: 10:30 Constitutional: This is a well developed, well nourished patient who is awake, alert, jmm and in no acute distress. Head/Face: atraumatic. Eyes: EOMI, no conjunctival erythema appreciated ENT: Moist Mucus Membranes Neck: Trachea midline, Supple Chest/axilla: Normal chest wall appearance and motion. Cardiovascular: Regular rate and rhythm. No edema appreciated Respiratory: Normal respirations, no respiratory distress appreciated 10:30 Back: Normal ROM Skin: General appearance color normal MS/ Extremity: Moves all extremities, no obvious deformities appreciated, no edema noted to the lower extremities Neuro: Awake and alert Psych: Behavior is normal, Mood is normal, Patient is cooperative and pleasant 10:30 Abdomen/GI: Inspection: abdomen appears normal, Bowel sounds: normal, Palpation: soft, mild abdominal tenderness, in the right lower quadrant. Vital Signs: 10:34 BP 138 / 82; Pulse 82; Resp 16; Temp 98.8(TE); Pulse Ox 96% on R/A; Weight 75.3 kg; ss Height 5 ft. 4 in. ; Pain 0/10; 11:30 BP 110 / 72; Pulse 64; Resp 18; Pulse Ox 99% on R/A; ph 12:34 BP 102 / 63; Pulse 62; Resp 18; Pulse Ox 100% on R/A; ph 13:30 BP 108 / 70; Pulse 68; Resp 18; Pulse Ox 98% on R/A; ph 10:34 Body Mass Index 28.49 (75.30 kg, 162.56 cm) ss 10:34 Pain Scale: Adult ss MDM: 10:30 Patient medically screened. [facility] 15:07 Differential diagnosis: Abdominal Aortic Aneurysm Hydronephrosis Pyelonephritis [facility] Ureterolithiasis. Data reviewed: vital signs, nurses notes, lab test result(s), radiologic studies, CT scan. Consideration of Admission/Observation Patient was admitted/placed on observation. Escalation of care including admission/observation considered. Management of patient was discussed with the following: General Farm Manager: Dr. Miller. ED course: I discussed the patient with Dr. Miller who will take the patient to the OR for stent. Dr. Mcgee was contacted in regards to hospitalist management of the patient. 10/08 10:32 Order name: CBC with Diff; Complete Time: 11:01 [facility] 10/08 10:32 Order name: CMP; Complete Time: 12:38 [facility] 10/08 10:32 Order name: Lipase; Complete Time: 12:38 [facility] 10/08 10:32 Order name: Urinalysis w/ reflexes; Complete Time: 13:46 [facility] 10/08 13:46 Order name: Blood Culture Adult (2) [facility] 10/08 13:46 Order name: Lactate w/ 2H reflex if indic.; Complete Time: 15:40 [facility] 10/08 13:48 Order name: Urine Culture [facility] 10/08 10:32 Order name: CT Abd/Pelvis - IV Contrast Only; Complete Time: 13:53 [facility] 10/08 10:32 Order name: IV Saline Lock; Complete Time: 11:01 [facility] 10/08 10:32 Order name: Labs collected and sent; Complete Time: 11:01 jmm 10/08 10:49 Order name: Labs - recollect needed: recollect green top; Complete Time: 11:01 bd 10/08 11:14 Order name: Labs - recollect needed: recollect green top again; Complete Time: 12:10 bd Administered Medications: 14:32 Drug: Rocephin IV 1 grams Route: IV; Rate: calculated rate; Site: right antecubital; ph 14:40 Follow up: Response: No adverse reaction; IV Status: Infusion continued upon admission ph Disposition: 10/09 13:45 Co-signature as Attending Physician, Rolo Lopez MD I reviewed the patient's care rt provided by the Advanced Practice Provider and agree with the diagnosis and treatment plan. Disposition Summary: 10/08/22 14:01 Hospitalization Ordered Hospitalization Status: Observation [facility] Provider: Kain Miller Location: Operating Room [facility] Condition: Stable jmm Problem: new jmm Symptoms: are unchanged [facility] Bed/Room Type: Standard [facility] Room Assignment: [facility] Diagnosis - Calculus of ureter jmm - Calculus of kidney with calculus of ureter jmm - Acute Kidney Injury [facility] Forms: - Medication Reconciliation Form jmm - SBAR form jmm Signatures: Dispatcher [employer] EDJanel Carr Joel, PA PA jmm Blanchard, Shelby, RN AIMEE Keshia May RN RN Rolo Schwarz MD MD rt
[2022-10-08] MEDS ORDERED: CEFTRIAXONE 1000 MG/VIAL ONE (14:25)
[2022-10-08] MEDS ORDERED: NA CHLORIDE 0.9% 50 ML ONE (14:25)
[2022-10-08] MEDS ORDERED: Ringers Lactate 1,000 ML IV ONE (14:47)
[2022-10-08] MEDS ORDERED: propofoL 200 MG/20 ML VIAL IV ONE (14:55)
[2022-10-08] MEDS ORDERED: ONDANSETRON 4 MG/2 ML VIAL ONE (14:55)
[2022-10-08] MEDS ORDERED: FENTANYL CITR 100 MCG/2 ML ONE (14:55)
--- NOTE | 2022-10-08 15:17 | P.CNS ---
Date of Consult: 10/08/22 Reason for Consult: Obstructive ureterolithiasis Chief Complaint: Right flank pain History of Present Illness: 87-year-old G6, P6 vaginal deliveries woman with hypertension and right lateral wall abdominal hernia following an exploratory laparotomy for ruptured intestines presents as a first-time stone former with obstructive right ureterolithiasis. She developed severe right flank pain a week ago Friday, and this was associated with nausea but no vomiting. She also denied any associated fever or chills. She did have anorexia. She took Tylenol to manage the pain but did not seek medical evaluation until today. Past medical history: Hypertension as above Past surgical history: Exploratory abdominal laparoscopy Social history: No history of smoking, recreational drug use, or organic chemical exposure Family history: No family history of urologic malignancy Examination: Uncomfortable appearing but in no acute distress Alert, awake, oriented x3 No dyspnea or sign of respiratory distress No cervical/supraclavicular adenopathy or thyromegaly Abdomen soft, nontender, nondistended Pulse regular and 2+ radial No Homans' sign on the right but questionable Homans' sign/calf tenderness on the left Lying in a hospital stretcher White counts 11.2, hemoglobin 12.5, platelets 212, creatinine 1.48 (baseline 0.95), UA micro with 2+ leukocyte Estrace, plus heme, greater than 50 WBCs, negative nitrites, 20-[address] abdomen and pelvis with contrast 10/08/2022: Findings: Severe right hydroureteronephrosis with a 1.5 cm calculus present at the right ureterovesical junction. Other nonobstructing calculi seen in the right mid to lower pole, with the largest measuring 1.4 cm. Pronounced right perinephric and periureteric fluid. No focal suspicious parenchymal lesions. Diastases recti with large ventral hernia containing portions of the stomach, pancreas, as well as small and large bowel. This appears progressive since 2017 exam. No suspicious masses or bulky adenopathy. Bladder is normal. Impression: Severe right hydroureteronephrosis with 1.5 cm obstructing right UVJ calculus and 1.4 cm nonobstructing renal calculus in association with nephrolithiasis. Assessment and recommendation: 87-year-old G6, P6 vaginal deliveries woman with hypertension and right lateral wall abdominal hernia following an exploratory laparotomy for ruptured intestines with large volume right nephroureterolithiasis with obstructing 1.5 cm right UVJ calculus causing severe right hydronephrosis, periureteral stranding, HARLEY and severe right flank pain in the setting of possible cystitis. -Given the size and obstruction associated with the distal ureteral calculus, I counseled the patient and her grandson that there was a significant possibility I may not be able to place a right ureteral stent. I explained that she likely would better benefit from a percutaneous nephrostomy tube, but since we do not have those services available and transfers often take significant time to arrange, I felt it was reasonable to attempt management and placement of a stent as long as we minimize the amount of manipulation and pressurized irrigation within the ureteral lumen required. To that end, she was given ceftriaxone IV antimicrobial therapy in the emergency department, which I agree with, and we will continue that antimicrobial course. -We will plan cystoscopy with attempted right ureteral stent placement, possible laser lithotripsy of the stone sufficient to place a right ureteral stent. Possible right percutaneous nephrostomy tube placement. -Patient will be admitted postoperatively to Dr. Todd's service for management of her acute kidney injury. Allergies sulfamethoxazole [From Bactrim] Allergy (Severe, Verified 08/25/14 00:00) kidney failure trimethoprim [From Bactrim] Allergy (Severe, Verified 08/25/14 00:00) kidney failure Sulfa (Sulfonamide Antibiotics) Allergy (Verified 08/25/14 00:00) KIDNEY FAILURE Home Medications: Loperamide [Imodium*] 2 mg PO QID 02/04/15 Magnesium Oxide [Mag 0X*] 400 mg PO BID #60 tab 02/10/15 levoFLOXacin [Levaquin*] 500 mg PO DAILY #10 tab 02/10/15 - Past Medical/Surgical History Diabetic: No -: COPD -: OBESITY -: DVT left leg -: PE -: CHRONIC UTI -: HYPERLIPIDEMIA -: CHOLECYSTECTOMY -: BOWEL RESECTION -: REPAIR OF RUPTURED HERNIA -: ILEOSTOMY PLACEMENT - Family History Mother Medical History: Heart disease, Hypertension, Lung disease, Stroke Notes: smoker, COPD Father Medical History: Heart disease, Lung disease Notes: bad heart per pt - Social History Smoking Status: Former smoker Alcohol use: No CD- Drugs: No Caffeine use: No Physical Examination Temp Pulse Resp BP Pulse Ox 98.8 F 62 18 102/63 10/08/22 10:34 10/08/22 12:34 10/08/22 12:34 10/08/22 12:34 Laboratory Data (last 24 hrs) 10/08/22 12:01: Sodium 137, Potassium 4.1, BUN 17, Creatinine 1.48 H, Glucose 130 H, Total Bilirubin 1.4 H, AST 12 L, ALT 14, Alkaline Phosphatase 43 L, Lipase 12 L 10/08/22 10:33: WBC 11.20 H, Hgb 12.5, Hct 36.9, Plt Count 212 - Problems (1) Ureterolithiasis Current Visit: Yes Status: Acute (2) Right nephrolithiasis Current Visit: Yes Status: Acute (3) Acute right flank pain Current Visit: Yes Status: Acute (4) Acute kidney injury Current Visit: No Status: Acute Conclusions/Impression: See assessment and plan within HPI Critical Care: No Time Spent Managing Pts care (In Minutes): 30
[2022-10-08] MEDS ORDERED: CEFEPIME 1 GM in NA CHLORIDE 0.9% 100 ML IV ONE (16:00)
[2022-10-08] MEDS ORDERED: CODEINE 30MG/APAP 300MG TAB PO PRN (16:10)
--- NOTE | 2022-10-08 16:34 | RAD REPORT ---
EXAM DESCRIPTION: RAD - Urethrocystogrphy Retrograde - 10/08/2022 3:56 pm CLINICAL HISTORY: RIGHT STENT PLACEMENT COMPARISON: None available. FINDINGS: Seven Images were sent to PACS, documenting needle positions during an image guided right ureteral stent placement procedure. No radiologist was available for the procedure, nor will any imag e interpretation he provided. Please refer to the procedural report for additional details. Fluoroscopy time: 0.48 Minutes. IMPRESSION: Documentation of fluoroscopy utilization as above.
--- NOTE | 2022-10-08 16:43 | OP ---
Surgeon: VAHID LEMOS Preoperative Diagnoses: 1.Right nephroureterolithiasis. 2.Right hydronephrosis/pelvocaliectasis. 3.Complicated urinary tract infection. 4.Right flank pain. Postoperative Diagnoses: 1.Right nephroureterolithiasis. 2.Right hydronephrosis/pelvocaliectasis. 3.Complicated urinary tract infection. 4.Right flank pain. 5.Right renal papillary necrosis. Principal Procedures: 1.Cystoscopy. 2.Right retrograde pyelography. 3.Complicated right ureteral Reyna catheter placement. Indication For Procedure: Ms. Gamble is an 87-year-old woman G6, P6, vaginal deliveries with hyperte nsion and right lateral wall abdominal hernia following an exploratory laparotomy for ruptured intest ash with large volume right nephroureterolithiasis with a 1.5 cm obstructing right UVJ calculus caus ing severe right-sided hydronephrosis, periureteral stranding, acute kidney injury, and severe right- sided flank pain in the setting of a cystitis and minimum suspected complicated UTI. She was patient financial counselor ed on the distinct possibility that placement of a stent may not be possible given the stone at the ureteral orifice and its size, but we elected to given an attempt. Procedure In Detail: The patient was consented in the preoperative holding area before being transfe rred to the operative suite, where general anesthesia was induced. She had been given ceftriaxone, I V antimicrobial prophylaxis and pneumo boots were provided for DVT prophylaxis. She was placed in li thotomy position, padded and secured to the table appropriately. Her genitalia were prepped with Hib iclens and then after that with Betadine and draped in standard fashion. The case was begun using a 22-[place] rigid cystoscope to traverse the urethra and into the bladder with ease. The bladder was d ecompressed of fluid and some cloudy appearing urine. It was briefly surveyed, and there were no pap illary mucosal lesions, foreign bodies, or stones. There was evidence of mild cystitis. The uretera l orifices were orthotopic in location, and the right ureteral orifice was cannulated using the tip o f the 5-[place] ureteral access catheter, and of note, the stone was noted visible from the bladder wi thin the ureteral orifice. As a result, I was only able to insert a few millimeters of the 5-[place] ureteral access catheter into the orifice to attempt to perform a right retrograde pyelogram. Right retrograde pyelography: Using a 70:30 mixture of Omnipaque and saline, contrast was injected via the lumen of the 5-[place] ur eteral access catheter and did propagate beneath and to the sides of this significantly obstructing U VJ 1.5 cm calculus. The contrast would not progress beyond the stone and in fact refluxed into the b ladder. As a result, I utilized a Sensor wire and was able to with some manipulation navigate the Se nsor wire beyond the stone and up the ureter. There was marked tortuosity of the ureter with the ure ter literally back circling on itself before entering a markedly hydronephrotic right kidney. Once I was able to navigate the Sensor wire at least into the proximal ureter, I navigated the 5-[place] ure teral access catheter over it into the mid ureter and attempted to aspirate some urine for culture. None would aspirate at this point; so, I then utilized the contrast and again injected as slight degr ee of contrast in order to delineate the tortuosity of the ureter previously described and the entry into the renal pelvis. Once this was identified, I then was able to successfully navigate the Sensor wire beyond the circled tortuosity of the ureter and successfully into the renal pelvis and upper po le calyces. I then removed the 5-[place] ureteral access catheter and attempted to pass a 6-[place] x 26 cm double-J right ureteral stent since her kidney was in fact low within her pelvis, but because t fawn ureter was tortuous. Despite that attempt, the stent was still too short to actually enter into t he renal pelvis sufficiently for a coil to form there and keep the stent in appropriate position, lar obdulia due to the marked tortuosity of the ureter, increasing the ureteral length; so I had to remove t he 6-[place] x 26 cm stent, leaving the wire in place and instead passed a 6-[place] x 28 cm double-J u reteral stent, which I was able to navigate into the pelvis sufficiently to obtain a coil observed fl uoroscopically. An an additional coil was observed cystoscopically in her bladder. I then decompres sed her bladder of very cloudy appearing urine, some of which was sent for culture as right renal uri ne culture. To further assist her decompression, I then placed an 18-[place] urethral Reyna catheter into the bladder with ease, and the catheter was connected to a floor bag. The patient was then take n out of the lithotomy position, awakened from general anesthesia, transferred to a stretcher, and th en transferred to the recovery room in good condition. Complications: None. Discharge Disposition: The patient will be admitted and observed with IV antimicrobials for resoluti on of her acute kidney injury and to ensure she does not progress to signs of sepsis or shock. Of no te, I additionally gave the patient 1 g of cefepime to broaden her antimicrobial coverage once the si gnificantly cloudy and infected appearing urine from her right renal unit was observed. So the patie nt got 1 g of ceftriaxone intraoperatively as well. Subsequent definitive stone management will be r equired and arranged electively as an outpatient. Followup should be established in the Urology Clin [facility] to discuss and make those preparations. That would be for right-sided ureteroscopy with laser lit hotripsy and stent exchange. LAUREN/MODL Voice ID: [id number] Report ID: [id number]
[2022-10-08 16:56] VITALS: BMI 28.5
[2022-10-08] MEDS ORDERED: NA CHLORIDE 0.9% 1,000 ML IV SCH (17:00)
[2022-10-08] MEDS: NA CHLORIDE 0.9% 1,000 ML IV SCH (20:12)
[2022-10-08] MEDS: ACETAMINOPHEN 500 MG TAB PO PRN (20:47)
[2022-10-09 03:46] LABS: Potassium 3.4 mEq/L (3.5-5.1)
[2022-10-09 04:31] LABS: Absolute Lymphocytes (CBC) 0.9 K/uL (0.7-4.9); Hematocrit 32.4 % (36.0-45.0); Lymphocytes % 9.4 % (15.3-44.8); MCV 101.8 fL (80-100); MPV 8.3 fL (7.6-11.3); RBC Red Blood Cell Count 3.18 M/uL (3.86-4.86)
--- NOTE | 2022-10-09 05:40 | HP ---
Date of Admission: 10/08/2022 Chief Complaint: Abdominal pain. History Of Present Illness: 87-year-old very pleasant female patient came into emergency room with 5 to 7 days' history of increasing abdominal pain. The patient denies any fever, chills, nausea, vomi ting, constipation, or diarrhea. No blood in urine. No blood in stool. No dysuria or hematuria. S he came into ER because of worsening of her pain and after she was evaluated, she was admitted to the hospital under my service as a hospitalist, as I was providing coverage to hospitalist service. Dr. Kain Miller from Urology Service was contacted by ER physician because patient's workup in the em ergency room, revealed 1.5 cm stone in the ureter at the UV junction causing significant hydronephros is and the patient was taken to operating room by Dr. Miller and he did contact me and informed me b efore the procedure. He discussed details with me and after the procedure, he notified me that he wa s able to put a stent in her ureter and when he did put a stent, he did obtain purulent-looking urine from the proximal aspect, so he did discontinue her ceftriaxone and started her on cefepime at that particular time and after the procedure, the patient was admitted to the hospital under my service as a hospitalist coverage. I saw her this evening. She was feeling much better. Allergies: SULFA. Medications: List not available. Her medication list in the hospital system has not been reconciled and the patient does not know exactly what she takes and I have nursing staff to get list of medicat ion from her family members and update the chart so we can reconcile at appropriate time. Review of Systems: GI: As mentioned above. All other systems reviewed and negative. Past Medical History: Significant for hypertension, hyperlipidemia, COPD, history of DVT of leg, and pulmonary embolism, gastroesophageal reflux disease, anemia. Past Surgical History: Cholecystectomy, hernia repair, partial bowel resection with ileostomy in the past, which was reversed. Family History: Mother had heart disease. Father had cancer. Social History: Negative for smoking and alcohol use. Physical Examination: Vital Signs: Temperature 98.9, pulse 76, respiratory rate 16, blood pressure 149/67, oxygen saturati on 93% on 2 L nasal cannula oxygen. General: Awake, alert, oriented, not in distress. HEENT: Head atraumatic, normocephalic. Conjunctivae nonerythematous. Sclerae white. Mouth, no thr ush or edema noted. Ears/Nose, no mass, lesion, discharge noted. Neck: Supple. No JVD, lymph nodes, bruit, thyromegaly noted. Lungs: Bilateral good equal air entry. Clear to auscultation. No rhonchi. No rales. Heart: Normal heart sounds, no murmur or gallop. Abdomen: Soft. No distention. Bowel sounds normoactive. Mild tenderness in the anterior flank reg ion. No rebound tenderness. Abdominal wall has old surgical scar with very lax abdominal wall due t o prior surgical scar and has large ventral abdominal wall hernia without any evidence of obstruction . Extremities: No leg edema. No calf tenderness. Skin: No rash, ulcer, cellulitis. Lymphatics: No lymph node enlargement in neck, supraclavicular, infraclavicular region. Neuro: No focal neurological deficit. Chest: Unremarkable. External Genitalia: Deferred. Rectal: Deferred. Laboratory Data: White count 11.2, hemoglobin 12.5, platelets 212. Sodium 137, potassium 4.1, chlor bessy 104, bicarb 29, BUN 17, creatinine 1.48, glucose 130, total bilirubin 1.4. Rest of liver functio n tests normal. Lipase 12. Urinalysis, leukocyte esterase 500, rbc's 5 to 10, wbc's more than 50, b acteria 20 to 50. CAT scan of abdomen and pelvis with contrast shows severe right-sided hydronephros is with 1.5 cm obstructing calculus at right UV junction. Pronounced right perinephric and periurete avis fluid, nonspecific and other nonobstructing right renal calculi up to 1.4 cm in size. Impression: 1.Acute pyelonephritis. 2.Right ureter stone with hydronephrosis. 3.Renal stone. 4.Hypertension. 5.Hyperlipidemia. 6.Chronic obstructive pulmonary disease. 7.Acute kidney injury. Plan: Admit patient to hospital for further evaluation and management of this problem. The patient is appropriate for inpatient and is expected to spend 2 midnights in hospital. The patient was admit reina under my service as I was providing coverage for hospitalist team and we will have Dr. Paul connor to follow up. On outpatient basis, the patient should continue to follow up with him as well. We will follow up on her culture results and then make decision empiric antibiotic cefep arlene will be given. The patient already has SCD in place for DVT prophylaxis. We will consult Physic al Therapy. Continue IV fluid, but reduce rate from 125 cc down to 70 cc/hour. We will repeat blood work tomorrow morning. Details and plan of treatment discussed with the patient. GULSHAN/HANANE Voice ID: [id number]
[2022-10-09] MEDS: NA CHLORIDE 0.9% 1,000 ML IV SCH ×3 (08:12→21:12)
[2022-10-09] MEDS: CEFEPIME 1 GM in NA CHLORIDE 0.9% 100 ML IV SCH ×2 (08:14→21:11)
[2022-10-09] MEDS: LOPERAMIDE HCL 2 MG CAPSULE PO SCH ×2 (08:15→21:12)
[2022-10-09] MEDS: carvediloL 3.125 MG TAB PO SCH ×2 (08:16→21:12)
[2022-10-09] MEDS ORDERED: carvediloL 3.125 MG TAB PO SCH (09:00)
--- NOTE | 2022-10-09 18:01 | PN ---
Date of Progress Note: 10/09/2022 Subjective: The patient was seen this morning for followup. She was feeling much better. Denies an y abdominal pain. No nausea, vomiting. No chest pain. No shortness of breath. Objective: Vital Signs: Reviewed. HEENT: Unremarkable. Lungs: Clear to auscultation. Heart: Sounds normal. Abdomen: Soft. Bowel sounds normal. No guarding, rigidity. Laboratory Data: White count 9.3, hemoglobin 10.8, platelets 179. Sodium 138, potassium 3.4, chlori de 104, bicarb 29, BUN 16, creatinine 1.27, glucose 103. The patient's blood culture is growing gram -negative rods. Impression: 1.Sepsis. 2.Pyelonephritis. 3.Right ureter stone with obstruction, with hydronephrosis, status post ureter stent placement. 4.Hypertension. 5.Hypokalemia. 6.Anemia, unspecified. Plan: We will go ahead and continue current antibiotic which is cefepime. The patient's blood cultu re was reported this morning growing gram-negative rods. Definite identification and sensitivity res ult is pending and we will continue current antibiotic until the final report on the culture results is available and then we will decide about culture specific antibiotic. The patient's systolic blood pressure was around 100 this morning. She is currently on maintenance IV fluid, we will continue th at. Clinically, she is feeling much better and Physical Therapy to work with her. SCD is in place f or DVT prophylaxis. The patient has significantly large ventral abdominal wall hernia almost involvi ng entire anterior abdominal wall and with that, I will not feel comfortable her getting Lovenox inje ction in anterior abdominal wall. We will go ahead and continue SCD for DVT prophylaxis at this time . I will see her tomorrow for followup. We will hold carvedilol if systolic blood pressure less hilario n 120. GULSHAN/MODL Voice ID: [id number] Report ID: [id number]
[2022-10-09] MEDS ORDERED: POTASSIUM 25 MEQ EFFERV TAB PO ONE (21:00)
[2022-10-10 04:53] LABS: Absolute Lymphocytes (CBC) 1.1 K/uL (0.7-4.9); Lymphocytes % 15.2 % (15.3-44.8); MCV 102.5 fL (80-100); RBC Red Blood Cell Count 2.83 M/uL (3.86-4.86)
[2022-10-10 05:12] LABS: Magnesium 1.4 mg/dL (1.6-2.4); Potassium 3.6 mEq/L (3.5-5.1)
[2022-10-10] MEDS: carvediloL 3.125 MG TAB PO SCH ×2 (08:05→20:24)
[2022-10-10] MEDS: CEFEPIME 1 GM in NA CHLORIDE 0.9% 100 ML IV SCH ×2 (08:05→20:24)
[2022-10-10] MEDS: LOPERAMIDE HCL 2 MG CAPSULE PO SCH ×2 (08:05→20:24)
[2022-10-10] MEDS ORDERED: NA CHLORIDE 0.9% 100 ML ONE (08:11)
[2022-10-10] MEDS ORDERED: CEFEPIME 1 GM/VIAL ONE (08:20)
[2022-10-10] MEDS ORDERED: Magnesium Sulfate 2gm IVPB 2 G/50 ML BAG IV ONE (09:00)
[2022-10-10] MEDS ORDERED: POTASSIUM CL SA 10 MEQ TAB PO ONE (14:00)
--- NOTE | 2022-10-10 22:13 | PN ---
Date of Progress Note: 10/10/2022 Subjective: Patient was seen this morning for followup. She denies any chest pain, shortness of karley ath. No abdominal pain, nausea, vomiting. Overall, she feels well. Objective: Vital Signs: Reviewed. Remains afebrile. HEENT: Unremarkable. Lungs: Clear to auscultation. Heart: Sounds normal. Abdomen: Soft. Bowel sounds normal. No guarding, rigidity, tenderness, distention. Extremities: No leg edema. Laboratory Data: White count 8.5, hemoglobin 13.6, platelets 189. Sodium 137, potassium 3.6, chlori de 106, bicarb 28, BUN 19, creatinine 1.23, glucose 95. Magnesium 1.4. Impression: 1.Sepsis. 2.Acute pyelonephritis. 3.Hypokalemia. 4.Hypomagnesemia. 5.Hypertension. Plan: Patient's blood pressure is still not high enough to restart her home medications as of this m more. I did communicate with her and informed her that upon discharge from hospital, she will need to continue to monitor her blood pressure at home and once her systolic blood pressure gets higher t morales 130 then she should restart her blood pressure medication, spironolactone 50 mg daily and carvedi lol 12.5 mg. She should start only half a tablet 2 times a day instead of 1 tablet 2 times a day. S he verbalized this understanding. We have checked with microbiology today. Her blood culture and ur ine culture are growing gram-negative rods. Definite identification and sensitivity result will not be ready until tomorrow and depending on that result, decision will need to be made if she can go mehdi e with appropriate oral antibiotics or IV antibiotics. All these details were discussed with her as well. I have instructed her that she should have a followup with her primary care provider and Dr. Ijeoma rizzo, urologist, in 1-2 weeks. As of tomorrow, she will be taken over by hospitalist team and I feldman ve communicated details with Dr. Johnson and he will take over her care. GULSHAN/MODL Voice ID: [id number] Report ID: [id number]
[2022-10-11 05:07] LABS: Magnesium 1.8 mg/dL (1.6-2.4)
[2022-10-11 06:02] LABS: Potassium 3.8 mEq/L (3.5-5.1)
[2022-10-11] MEDS ORDERED: MAGNESIUM SULFATE 1 gm IVPB 1 GM/100 ML BAG IV ONE (07:00)
[2022-10-11] MEDS: LOPERAMIDE HCL 2 MG CAPSULE PO SCH ×3 (09:00→21:00)
[2022-10-11] MEDS ORDERED: POTASSIUM 25 MEQ EFFERV TAB PO ONE (09:00)
[2022-10-11] MEDS: carvediloL 3.125 MG TAB PO SCH ×2 (09:09→21:00)
[2022-10-11] MEDS: CEFEPIME 1 GM in NA CHLORIDE 0.9% 100 ML IV SCH (09:12)
[2022-10-11] MEDS: ACETAMINOPHEN 500 MG TAB PO PRN (14:03)
[2022-10-11] MEDS: Meropenem 1,000 MG in NA CHLORIDE 0.9% 100 ML IV SCH (21:00)
[2022-10-11] MEDS: Mupirocin NASAL 2 APPL/1 GM TUBE NAS SCH (21:00)
[2022-10-12 06:34] LABS: Magnesium 1.9 mg/dL (1.6-2.4); Potassium 4.1 mEq/L (3.5-5.1)
[2022-10-12] MEDS ORDERED: NA CHLORIDE 0.9% 100 ML ONE (07:52)
[2022-10-12] MEDS: LOPERAMIDE HCL 2 MG CAPSULE PO SCH ×2 (08:21→20:06)
[2022-10-12] MEDS: Meropenem 1,000 MG in NA CHLORIDE 0.9% 100 ML IV SCH ×2 (08:21→20:07)
[2022-10-12] MEDS: carvediloL 3.125 MG TAB PO SCH ×2 (08:22→20:06)
[2022-10-12] MEDS: Mupirocin NASAL 2 APPL/1 GM TUBE NAS SCH ×2 (08:22→20:08)
[2022-10-12] MEDS: ACETAMINOPHEN 500 MG TAB PO PRN (08:56)
--- NOTE | 2022-10-12 15:33 | P.PN ---
Subjective Date of Service: 10/11/22 Subjective: No new changes, No C/O voiced, Improving Review of Systems 10-point ROS is otherwise unremarkable Physical Examination - Vital Signs Temperature: 97.6 F Blood Pressure: 117/67 Pulse: 66 Respirations: 24 Pulse Ox (%): 93 - Physical Exam General: Alert, In no apparent distress, Oriented x3 Respiratory: Clear to auscultation bilaterally, Normal air movement Cardiovascular: Regular rate/rhythm, Normal S1 S2 Gastrointestinal: Normal bowel sounds, Soft and benign, Non-distended, No tenderness Musculoskeletal: No clubbing, No swelling, No tenderness Neurological: Sensation intact, Cranial nerves 3-12 intact - Studies Medications List Reviewed: Yes Assessment & Plan - Problems (Diagnosis) (1) Acute kidney injury Current Visit: No Status: Acute (2) COPD (chronic obstructive pulmonary disease) Current Visit: No Status: Acute (3) Urinary tract infectious disease Onset Date: 02/06/15 Current Visit: No Status: Acute - Plan Plan: 1. IV fluids 2. IV antibiotics 3. Monitor electrolytes closely 4. Strict blood pressure and blood sugar control 5. GI DVT prophylaxis Discharge Plan: Home Plan to discharge in: Greater than 2 days - Advance Directives Does patient have a Living Will: No Does patient have a Durable POA for Healthcare: Yes - Code Status/Comfort Care Code Status Assessed: Yes Code Status: Full Code Critical Care: No Time Spent Managing PTS Care (In Minutes): 35
--- NOTE | 2022-10-12 15:35 | P.PN ---
Date of Service: 10/12/22 Subjective Subjective: Patient is clinically doing well. PICC line attempt was unsuccessful so we went ahead and placed a midline. We will make sure IV antibiotics and home meds is arranged prior to discharge. Review of Systems 10-point ROS is otherwise unremarkable Physical Examination - Vital Signs Reviewed - Physical Exam General: Alert, In no apparent distress, Oriented x3 Respiratory: Clear to auscultation bilaterally, Normal air movement Cardiovascular: Regular rate/rhythm, Normal S1 S2 Gastrointestinal: Normal bowel sounds, Soft and benign, Non-distended, No tenderness Musculoskeletal: No clubbing, No swelling, No tenderness Neurological: no focal deficits Assessment & Plan - Problems (Diagnosis) (1) Acute kidney injury Current Visit: No Status: Acute (2) COPD (chronic obstructive pulmonary disease) Current Visit: No Status: Acute (3) Urinary tract infectious disease Onset Date: 02/06/15 Current Visit: No Status: Acute - Plan Plan: 1. IV fluids 2. IV antibiotics 3. Monitor electrolytes closely 4. Strict blood pressure and blood sugar control 5. GI DVT prophylaxis
[2022-10-13 01:50] VITALS: O2SAT 95
[2022-10-13] MEDS: Mupirocin NASAL 2 APPL/1 GM TUBE NAS SCH ×2 (08:32→21:01)
[2022-10-13] MEDS: Meropenem 1,000 MG in NA CHLORIDE 0.9% 100 ML IV SCH ×2 (08:32→21:02)
[2022-10-13] MEDS: carvediloL 3.125 MG TAB PO SCH ×2 (08:32→21:01)
[2022-10-13] MEDS: LOPERAMIDE HCL 2 MG CAPSULE PO SCH ×2 (08:32→21:01)
[2022-10-13] MEDS: ACETAMINOPHEN 500 MG TAB PO PRN (18:16)
--- NOTE | 2022-10-14 02:38 | P.PN ---
Date of Service: 10/13/22 Subjective Subjective: Patient doing well patient denies complaints. Patient's symptoms are stable. Awaiting arrangements for outpatient antibiotic therapy. Midline in place in the left forearm. Review of Systems 10-point ROS is otherwise unremarkable Physical Examination - Vital Signs Reviewed - Physical Exam General: Alert, In no apparent distress, Oriented x3 Respiratory: Clear to auscultation bilaterally, Normal air movement Cardiovascular: Regular rate/rhythm, Normal S1 S2 Gastrointestinal: Normal bowel sounds, Soft and benign, Non-distended, No tenderness Musculoskeletal: No clubbing, No swelling, No tenderness Neurological: no focal deficits Assessment & Plan - Problems (Diagnosis) (1) Acute kidney injury Current Visit: No Status: Acute (2) COPD (chronic obstructive pulmonary disease) Current Visit: No Status: Acute (3) Urinary tract infectious disease Onset Date: 02/06/15 Current Visit: No Status: Acute - Plan Plan: Continue with plan of care as mentioned below: 1. Hep-Lock mid-line 2. IV antibiotics 3. Monitor electrolytes closely 4. Strict blood pressure and blood sugar control 5. Once outpatient antibiotics were arranged plan to discharge 6. GI DVT prophylaxis
[2022-10-14 08:59] VITALS: BP 150/68
[2022-10-14] MEDS: LOPERAMIDE HCL 2 MG CAPSULE PO SCH (08:59)
[2022-10-14] MEDS: carvediloL 3.125 MG TAB PO SCH (08:59)
[2022-10-14] MEDS: Meropenem 1,000 MG in NA CHLORIDE 0.9% 100 ML IV SCH (08:59)
[2022-10-14] MEDS: Mupirocin NASAL 2 APPL/1 GM TUBE NAS SCH (08:59)
[2022-10-14 09:11] VITALS: TEMP 98.8
[2022-10-14] MEDS ORDERED: ERTAPENEM NA 1 GM in NA CHLORIDE 0.9% 100 ML IVPB ONE (12:00)
== END 2022-10-14 14:53 | disposition home or self-care (01) | DRG 853 ==
LOC: ER 10:14 → ERHOLD 14:02 → OBSVTOIN 14:02 → 2ND 16:11
PROVIDERS: ADMIT Hospitalist; ATTEND Hospitalist
PROC: BT1D1ZZ Fluoroscopy of Right Kidney, Ureter and Bladder using Low Osmolar Contrast (ICD-10-PCS; 2022-10-08)
PROC: 0TJB8ZZ Inspection of Bladder, Via Natural or Artificial Opening Endoscopic (ICD-10-PCS; 2022-10-08)
PROC: 0T768DZ Dilation of Right Ureter with Intraluminal Device, Via Natural or Artificial Opening Endoscopic (ICD-10-PCS; principal; 2022-10-08 14:00)
DX: A41.9 Sepsis, unspecified organism (principal); N17.2 Acute kidney failure with medullary necrosis; N10 Acute pyelonephritis; E78.5 Hyperlipidemia, unspecified; I10 Essential (primary) hypertension; E87.6 Hypokalemia; D64.9 Anemia, unspecified; E83.42 Hypomagnesemia; J44.9 Chronic obstructive pulmonary disease, unspecified; Z88.1 Allergy status to other antibiotic agents; Z90.49 Acquired absence of other specified parts of digestive tract; Z86.711 Personal history of pulmonary embolism; Z86.718 Personal history of other venous thrombosis and embolism; Z28.310 Unvaccinated for COVID-19; Z87.891 Personal history of nicotine dependence
CPT/HCPCS: 36415; 51610; 74177; 74450; 80048; 80053; 81001; 83605; 83690; 83735; 85025; 87040; 87077; 87086; 87088; 87186; 87205; 96374; 97110; 97116; 97163; 97530; 99285; J0692; J0696; J1335; J2185; J2405; J2704; J3010; J3475; J7030; J7120; Q9967

== ENCOUNTER 2022-10-15 16:52 | Emergency (ER) | payer OTHER ==
--- NOTE | 2022-10-15 18:02 | EDPHYS ---
Physician Documentation [facility] Name: Shayy Gamble Age: 87 yrs Sex: Female : 1935 Arrival Date: 10/15/2022 Time: 16:52 Bed 12 Private MD: HAYDER Physician Rolo Lopez HPI: 10/15 18:00 This 87 yrs old Female presents to ER via Wheelchair with complaints of Picc Line snw Problem. 18:00 Pt discharged from hospital yesterday with home health s/p infected stone with stent snw placement. Pt feeling better but having trouble hanging abx.. Historical: - Allergies: 17:16 Sulfa (Sulfonamide Antibiotics); nj1 - PMHx: 17:16 Hyperlipidemia; Hypertension; nj1 - PSHx: 17:16 Cholecystectomy; Colectomy; nj1 - Immunization history:: Client reports having NOT received the Covid vaccine. - Social history:: Smoking status: Patient denies any tobacco usage or history of. ROS: 17:42 Constitutional: Negative for fever, chills, and weight loss, Eyes: Negative for injury, snw pain, redness, and discharge, ENT: Negative for injury, pain, and discharge, Neck: Negative for injury, pain, and swelling, Cardiovascular: Negative for chest pain, palpitations, and edema, Respiratory: Negative for shortness of breath, cough, wheezing, and pleuritic chest pain, Abdomen/GI: Negative for abdominal pain, nausea, vomiting, diarrhea, and constipation, Back: Negative for injury and pain, : Negative for injury, bleeding, discharge, and swelling, MS/Extremity: Negative for injury and deformity, Skin: Negative for injury, rash, and discoloration, Neuro: Negative for headache, weakness, numbness, tingling, and seizure, Psych: Negative for depression, anxiety, suicide ideation, homicidal ideation, and hallucinations. Exam: 17:42 Constitutional: This is a well developed, well nourished patient who is awake, alert, snw and in no acute distress. Head/Face: Normocephalic, atraumatic. Eyes: Pupils equal round and reactive to light, extra-ocular motions intact. Lids and lashes normal. Conjunctiva and sclera are non-icteric and not injected. Cornea within normal limits. Periorbital areas with no swelling, redness, or edema. Neck: Trachea midline, no thyromegaly or masses palpated, and no cervical lymphadenopathy. Supple, full range of motion without nuchal rigidity, or vertebral point tenderness. No Meningismus. Cardiovascular: Regular rate and rhythm with a normal S1 and S2. No gallops, murmurs, or rubs. Normal PMI, no JVD. No pulse deficits. Respiratory: Lungs have equal breath sounds bilaterally, clear to auscultation and percussion. No rales, rhonchi or wheezes noted. No increased work of breathing, no retractions or nasal flaring. Abdomen/GI: Soft, non-tender, with normal bowel sounds. No distension or tympany. No guarding or rebound. No evidence of tenderness throughout. Back: No spinal tenderness. No costovertebral tenderness. Full range of motion. Skin: Warm, dry with normal turgor. Normal color with no rashes, no lesions, and no evidence of cellulitis. Neuro: Awake and alert, GCS 15, oriented to person, place, time, and situation. Cranial nerves II-XII grossly intact. Motor strength 5/5 in all extremities. Sensory grossly intact. Cerebellar exam normal. Normal gait. Psych: Awake, alert, with orientation to person, place and time. Behavior, mood, and affect are within normal limits. Vital Signs: 17:14 BP 108 / 84; Pulse 102; Resp 18; Temp 99(O); Pulse Ox 94% ; Weight 75.3 kg; Height 5 nj1 ft. 4 in. ; Pain 0/10; 17:14 Body Mass Index 28.49 (75.30 kg, 162.56 cm) nj1 17:14 Pain Scale: Adult nj1 MDM: 17:25 Patient medically screened. snw 18:05 Differential Diagnosis infusion interruption, clotted line. Data reviewed: vital signs, snw nurses notes. I considered the following discharge prescriptions or medication management in the emergency department Pt brought IV abx from home, PICC flused with NS, Abx infused, NS flush and then packed with Heparin. Counseling: I had a detailed discussion with the patient and/or guardian regarding: the historical points, exam findings, and any diagnostic results supporting the discharge/admit diagnosis, the need for outpatient follow up, for definitive care, to return to the emergency department if symptoms worsen or persist or if there are any questions or concerns that arise at home. Special discussion: Based on the history and exam findings, there is no indication for further emergent testing or inpatient evaluation. I discussed with the patient/guardian the need to see the primary care provider for further evaluation of the symptoms. 10/15 17:25 Order name: Stephaniac. Order: Please attempt to flush PICC; Complete Time: 17:35 snw 10/15 18:40 Order name: Misc. Order: flush with usg visualization please; Complete Time: 19:00 snw Administered Medications: 18:59 Drug: HEParin Flush IVP 50 units Route: IVP; Site: left forearm; iw 19:00 Follow up: Response: No adverse reaction iw Disposition: 21:10 Co-signature as Attending Physician, Rolo Lopez MD I reviewed the patient's care rt provided by the Advanced Practice Provider and agree with the diagnosis and treatment plan. Disposition Summary: 10/15/22 18:02 Discharge Ordered Location: Home snw Condition: Stable snw Diagnosis - Encounter for adjustment and management of vascular access device snw Followup: snw - With: Emergency Department - When: As needed - Reason: Worsening of condition Followup: snw - With: Private Physician - When: As needed - Reason: Worsening of condition Discharge Instructions: - Discharge Summary Sheet snw - PICC Home Care Guide snw Forms: - Medication Reconciliation Form snw - Thank You Letter snw - Antibiotic Education snw - Prescription Opioid Use snw - [email or web address] snw Signatures: Celia Muse FNP-C ALUMINIZER-Csnw Corine Herman, RN RN Rolo Sewell MD MD rt Rosetta Harman RN RN nj1
--- NOTE | 2022-10-15 18:02 | ER ---
Nurse's Notes [facility] Name: Shayy Gamble Age: 87 yrs Sex: Female : 1935 Arrival Date: 10/15/2022 Time: 16:52 Bed 12 Private MD: Diagnosis: Encounter for adjustment and management of vascular access device Presentation: 10/15 17:14 Chief complaint: Patient states: Discharged from hospital yesterday, given abx thru nj1 PICC line. Home health nurse came in this morning and was unable to utilize PICC to administer abx. Unsure if PICC has gone bad. Coronavirus screen: Vaccine status: Patient reports being unvaccinated. Ebola Screen: Patient denies travel to an Ebola-affected area in the 21 days before illness onset. Initial Sepsis Screen: Does the patient meet any 2 criteria? HR > 90 bpm. No. Patient's initial sepsis screen is negative. Does the patient have a suspected source of infection? No. Patient's initial sepsis screen is negative. Risk Assessment: Do you want to hurt yourself or someone else? Patient reports no desire to harm self or others. Onset of symptoms was October 15, 2022. 17:14 Method Of Arrival: Wheelchair nj1 17:14 Acuity: ELLIS 4 nj1 Triage Assessment: 17:50 General: Appears in no apparent distress. Behavior is calm. Pain: Denies pain. iw Historical: - Allergies: 17:16 Sulfa (Sulfonamide Antibiotics); nj1 - PMHx: 17:16 Hyperlipidemia; Hypertension; nj1 - PSHx: 17:16 Cholecystectomy; Colectomy; nj1 - Immunization history:: Client reports having NOT received the Covid vaccine. - Social history:: Smoking status: Patient denies any tobacco usage or history of. Screenin:49 [facility] ED Fall Risk Assessment (Adult) History of falling in the last 3 months, iw including since admission. Abuse screen: Denies threats or abuse. Denies injuries from another. Nutritional screening: No deficits noted. Tuberculosis screening: No symptoms or risk factors identified. Assessment: 17:49 Reassessment: Patient appears in no apparent distress at this time. PICC line flushed iw by AIMEE Sargent , antibiotic infusing. 18:30 Reassessment: pt incontinent of stool, pt cleaned, gown changed, linens changed. iw 18:56 Reassessment: Mid line assessed by AIMEE Hoff , line appears to be patent, spoke with home health nurse via telephone, she will speak to Dr. Johnson for new orders regarding IV antibiotics if necessary , CHRISTOPHER Yang notified, son is in agreement to follow up with home health and Dr. Johnson tomorrow. Vital Signs: 17:14 BP 108 / 84; Pulse 102; Resp 18; Temp 99(O); Pulse Ox 94% ; Weight 75.3 kg; Height 5 nj1 ft. 4 in. ; Pain 0/10; 17:14 Body Mass Index 28.49 (75.30 kg, 162.56 cm) nj1 17:14 Pain Scale: Adult [facility] ED Course: 17:07 Patient arrived in ED. rg4 17:16 Triage completed. nj1 17:18 Arm band placed on right wrist. nj1 17:24 Celia Muse FNP-C is PHCP. snw 17:25 Rolo Lopez MD is Attending Physician. snw 17:35 Corine Herman, RN is Primary Nurse. iw 18:59 No provider procedures requiring assistance completed. Patient did not have IV access iw during this emergency room visit. 19:10 Patient has correct armband on for positive identification. iw Administered Medications: 18:59 Drug: HEParin Flush IVP 50 units Route: IVP; Site: left forearm; iw 19:00 Follow up: Response: No adverse reaction iw Medication: 17:49 VIS not applicable for this client. iw Outcome: 18:02 Discharge ordered by . snw 19:11 Discharged to home via wheelchair, with family. iw 19:11 Condition: good 19:11 Discharge instructions given to patient, family, Instructed on discharge instructions, follow up and referral plans. 19:12 Patient left the ED. iw Signatures: Celia Muse FNP-C MACHINE TOOL ELECTRICIAN-Csnw Corine Herman, RN RN Kendy Diallo rg4 Rosetta Harman RN RN nj1
[2022-10-15] MEDS ORDERED: HEPARIN 500 UNIT/5 ML SYR IV ONE (18:15)
[2022-10-15 19:44] VITALS: BP 108/84; TEMP 99; O2SAT 94
== END 2022-10-15 19:12 | disposition home or self-care (01) ==
LOC: ER 16:52
DX: Z45.2 Encounter for adjustment and management of vascular access device (principal)
CPT/HCPCS: 96374; 99284; J1642

== ENCOUNTER 2022-11-26 06:11 | Day surgery (SDC) | payer OTHER ==
[2022-11-21 13:16] LABS: Absolute Lymphocytes (CBC) 1.6 K/uL (0.7-4.9); Hematocrit 34.1 % (36.0-45.0); Lymphocytes % 37.1 % (15.3-44.8); MCV 100.1 fL (80-100); MPV 7.4 fL (7.6-11.3); Platelets 179 thou/uL (152-406); RBC Red Blood Cell Count 3.41 M/uL (3.86-4.86)
[2022-11-21 13:26] LABS: Potassium 3.4 mEq/L (3.5-5.1)
[2022-11-26] MEDS ORDERED: Ringers Lactate 1,000 ML IV ONE (06:46)
[2022-11-26] MEDS ORDERED: CEFEPIME 1 GM in NA CHLORIDE 0.9% 100 ML IV SCH (07:00)
[2022-11-26] MEDS ORDERED: propofoL 200 MG/20 ML VIAL IV ONE (08:08)
[2022-11-26] MEDS ORDERED: LIDOCAINE 1% MPF 5 ML VIAL ONE (08:10)
[2022-11-26] MEDS ORDERED: FENTANYL CITR 100 MCG/2 ML ONE (08:10)
[2022-11-26] MEDS ORDERED: ROCURONIUM 50 MG/5 ML VIAL IV ONE (08:10)
[2022-11-26] MEDS ORDERED: ONDANSETRON 4 MG/2 ML VIAL ONE (08:11)
[2022-11-26] MEDS ORDERED: EPHEDRINE SULF 50 MG/ML VIAL ONE (09:44)
[2022-11-26] MEDS ORDERED: GLYCOPYRROLATE 0.2 MG/ML SYR ONE (10:40)
[2022-11-26] MEDS ORDERED: NEOSTIGMINE 1 MG/ML -10 ML VIAL ONE (10:41)
[2022-11-26] MEDS ORDERED: HYDROCODONE/APAP 5/325 MG TAB PO PRN (10:49)
[2022-11-26] MEDS ORDERED: PHENAZOPYRIDINE 100MG TAB PO ONE ×2 (10:49→12:39)
[2022-11-26 14:45] VITALS: BP 175/89; TEMP 97.1; O2SAT 99
--- NOTE | 2022-11-26 15:18 | RAD REPORT ---
EXAM DESCRIPTION: RAD - Urethrocystogrphy Retrograde - 11/26/2022 2:07 pm CLINICAL HISTORY: RIGHT SIDED STENT COMPARISON: None available. FINDINGS: Fifty-two Images were sent to PACS, documenting other positions during an image guided ure teral stent placement procedure. No radiologist was available for the procedure, nor will any image interpretation he provided. Please refer to the procedural report for additional details. Fluoroscopy time: 1.4 Minutes. IMPRESSION: Documentation of fluoroscopy utilization as above.
--- NOTE | 2022-11-27 11:12 | OP ---
Surgeon: VAHID LEMOS Preoperative Diagnoses: 1.Large volume right nephrolithiasis. 2.1.5 cm right ureterolithiasis. 3.Complicating urinary tract infection. 4.Status post right ureteral stent placement. Postoperative Diagnoses: 1.Large volume right nephrolithiasis. 2.1.5 cm right ureterolithiasis. 3.Complicating urinary tract infection. 4.Status post right ureteral stent placement. Principal Procedures: 1.Cystoscopy. 2.Right retrograde pyelography. 3.Right ureteroscopy with pyeloscopy and laser lithotripsy, extensive and complex. 4.Right ureteral stent exchange. Indication For Procedure: Ms. Gamble is an 87-year-old woman, who presented via the emergency depart ment with signs of suspected sepsis associated with a significantly obstructing 1.5 cm distal right u reteral calculus associated with large volume right nephrolithiasis and a complicating infection. Nisha connell underwent emergent right ureteral stent placement and presents today for definitive management of h er stone disease. Procedure In Detail: The patient was consented in the preoperative holding area before being transfe rred to the operative suite, where general anesthesia was induced. She was given cefepime 1 g IV ant imicrobial prophylaxis and pneumo boots were provided for DVT prophylaxis. She was placed in the lit hotomy position, padded and secured to the table appropriately. Her genitalia were prepped with Tilai clens and she was draped in standard fashion. The case was begun using a 22-Botswanan rigid cystoscope to traverse the urethra and into the bladder. The bladder was decompressed of slightly cloudy urine. Of note, she was given preoperative antimicrobials at least 2-3 days prior to the surgery. The vito nt was noted to emanate from the right ureteral orifice and was somewhat calcified in appearance. Th e coil of the stent was grasped using an Alligator grasper and delivered to the meatus. A Sensor wir e was passed via the stent and with some difficulty, navigated via the proximal coil of the stent out of the proximal coil such that I was able to, under direct fluoroscopic guidance, remove the stent l eaving the wire in place. I noted significant tortuosity of the proximal ureter at this time and the re was question as to the wire successfully entered the renal pelvis, so with some manipulation of th e wire, I was able to advance it into the region of the calyces, where the stone burden was visible f luoroscopically. Leaving the wire in place, I then utilized a semi-rigid ureteroscope to perform dir ect vision distal ureteroscopy and then quickly identified the 1.5 cm distal ureteral calculus. As a result, I utilized a 272 nm laser fiber and a power setting of 0.8 joules and between 10 and 15 hert z to fragment that stone to dust, small enough to then utilize a 2.2-B[place]an ZeroTip Nitinol basket to grasp the stone fragments and deliver them out of the distal ureter and dumped them within the bladd er. After successfully removing the majority of the stone burden, I then passed a Bentson guidewire under direct vision via the semi-rigid ureteroscope up into the proximal ureter and putatively within the renal pelvis. Over the Bentson wire, I passed a ureteral access sheath into the proximal ureter leaving that in place. I then utilized a flexible ureteroscope, passed over the Bentson wire, which I navigated into the proximal ureter, where the tortuosity of the ureter prohibited ease of subseque nt passage fluoroscopically. As a result, I removed the wire and under pressurized normal saline irr igation, I was able to advance the scope alongside the indwelling safety wire and successfully enter the renal pelvis. There, I observed the calyces, where significant stone burden was identified in a lower pole calyx. I then utilized the laser fiber and power setting of 1.0 to 1.2 joules and between 15 and 20 hertz to fragment that stone into dust. Extensive fragmentation was required given the si ze of the stone burden there, approximately 1.5 to 2 cm. No attempts to remove that stone dust was m lore because of the extensive tortuosity that made access into the collecting system already difficult . So, I then began surveying into a posterior midpole calyx, where I encountered an additional 2 adriana culi each about 7 to 8 mm and again utilized the laser fiber to fragment those calculi into dust, sma ll enough to pass and essentially about the size of the laser fiber. However, despite all of this fr agmentation, fluoroscopically, additional calculus burden was seen. Fluoroscopically, I did have the scope in the calyx, where the burden was putatively located unless it was located in an anteroposter ior dimension behind essentially the calyx, where I was actively fragmenting the stone. However, bec ause of the extensive difficulty navigating into her collecting system and calyces, because of the ma rked tortuosity of the ureter essentially requiring the ureteroscope to make 3-4 bends in order just to do the fragmentation I had done so far, attempts to survey the calyces and find that were made, bu t the additional stone burden seen fluoroscopically could not be identified. As a result, I passed a Bentson guidewire via the ureteroscope, so I knew it coiled directly within the calyces of the kidne y and backed the ureteroscope out under direct vision leaving the wire in place. I then back-loaded the cystoscope over the Bentson wire and passed a 6-Botswanan by 26 cm double-J ureteral stent. This st ent was long, and because her kidney was more of a lower abdomen, almost pelvic localization, but bec ause of the marked tortuosity, an additional length of the stent was required. I then passed the vito nt under direct fluoroscopic guidance and was able to achieve with some great difficulty a proximal c oil of the stent within the renal pelvis. An additional coil was noted, making its way around the pr oximal ureter just because of the tortuosity before coming down into the bladder where a coil was suc cessfully formed cystoscopically within her bladder. I thus decompressed her bladder of fluid and ur ine, and then took her out of the lithotomy position. She was awakened from general anesthesia, kramer sferred to a stretcher, and then transferred to the recovery room in good condition. Complications: None. Discharge Disposition: 87-year-old, G6, P6, vaginal deliveries woman with hypertension and right lat eral wall abdominal hernia following exploratory laparotomy for ruptured intestines with large volume right nephroureterolithiasis associated with a 1.5 cm obstructing right UVJ calculus causing severe right-sided hydronephrosis, periureteral stranding, acute kidney injury, and severe right-sided flank pain in the setting of a cystitis and complicated UTI status post cystoscopy with right retrograde p yelography and stent placement on 10/08/2022, followed by extensive ureteroscopy with pyeloscopy, las er lithotripsy, and stent exchange performed on 11/26/2022 with an area of residual stone burden susp ected in an anterior or posterior mid pole calyx unidentifiable ureteroscopically due to severe tortu osity of the proximal ureter. Recommendation: Repeat CT of the abdomen without contrast to confirm the stone burden is indeed vita ceal, and if so, schedule right ESWL to manage the remainder of that stone burden prior to right ureteral stent extraction. LAUREN/MODAshley Voice ID: [id number] Report ID: [id number]
== END 2022-11-26 13:20 | disposition home or self-care (01) ==
LOC: OR 06:11
PROVIDERS: ATTEND Urology
PROC: 0T768DZ Dilation of Right Ureter with Intraluminal Device, Via Natural or Artificial Opening Endoscopic (ICD-10-PCS; 2022-11-26)
PROC: 0TF68ZZ Fragmentation in Right Ureter, Via Natural or Artificial Opening Endoscopic (ICD-10-PCS; principal; 2022-11-26 08:30)
DX: N20.2 Calculus of kidney with calculus of ureter (principal)
CPT/HCPCS: 52356; 87088; 85025; 87086; 80048; 36415; 87077; 87186; 74450; 51610; J2704; J2710; J2001; J3010; J2405; J7120; J0692

== ENCOUNTER 2023-05-06 07:59 | Day surgery (SDC) | payer OTHER ==
[2023-04-21 10:56] LABS: Absolute Lymphocytes (CBC) 1.7 K/uL (0.7-4.9); Hematocrit 36.5 % (36.0-45.0); Lymphocytes % 33.2 % (15.3-44.8); MCV 101.2 fL (80-100); MPV 7.2 fL (7.6-11.3); Platelets 177 thou/uL (152-406); RBC Red Blood Cell Count 3.61 M/uL (3.86-4.86)
[2023-04-21 11:18] LABS: Potassium 3.5 mEq/L (3.5-5.1)
[2023-04-21 11:25] LABS: Protime INR 1.15
--- NOTE | 2023-04-21 11:27 | RAD REPORT ---
EXAM DESCRIPTION: RAD - Chest Pa And Lat (2 Views) - 04/21/2023 11:18 am CLINICAL HISTORY: pre op for surgery Chest pain. COMPARISON: Chest Pa And Lat (2 Views) dated 11/07/2022; CHEST SINGLE VIEW dated 02/03/2015; CHEST SI NGLE VIEW dated 09/21/2014; CHEST SINGLE VIEW dated 08/14/2014 TECHNIQUE: PA and lateral views of the chest were obtained. FINDINGS: The lungs are hyperexpanded compatible with COPD. Small bilateral pleural effusions. The h eart is upper limit of normal in size. No fracture or aggressive bony process. IMPRESSION: COPD without acute process identified.
--- NOTE | 2023-04-22 17:13 | EKG ---
Test Date: 2023-04-21 Test Time: 11:46:21 Pugger Helper: MARSHA MEASUREMENT RESULTS: Intervals: Rate: 76 ID: [id number] QRSD: 80 QT: 376 QTc: 423 [place]: P: 66 ID: [id number] QRS: 2 T: 71 INTERPRETIVE STATEMENTS: Normal sinus rhythm Cannot rule out Anterior infarct, age undetermined Abnormal ECG Compared to ECG 05/05/2022 13:56:21 Myocardial infarct finding now present Electronically Signed On 04-22-23 17:10:46 SAND BLASTER by Ilia Malik
[2023-05-06] MEDS ORDERED: Ringers Lactate 1,000 ML IV ONE (08:03)
[2023-05-06] MEDS ORDERED: CIPROFLOXACIN 400mg IV 0 MG/0 ML BAG IV ONE (08:03)
[2023-05-06] MEDS ORDERED: LIDOCAINE 1% MPF 5 ML VIAL ONE (08:04)
[2023-05-06] MEDS ORDERED: ONDANSETRON 4 MG/2 ML VIAL ONE (08:04)
[2023-05-06] MEDS ORDERED: propofoL 200 MG/20 ML VIAL IV ONE (08:05)
[2023-05-06] MEDS ORDERED: FENTANYL CITR 100 MCG/2 ML ONE (08:05)
[2023-05-06] MEDS ORDERED: CODEINE 30MG/APAP 300MG TAB PO PRN (08:38)
--- NOTE | 2023-05-06 10:30 | OP ---
Surgeon: VAHID LEMOS Preoperative Diagnoses: 1.Right nephrolithiasis. 2.Status post ureteroscopy with laser lithotripsy and stent placement. Postoperative Diagnoses: 1.Right nephrolithiasis. 2.Status post ureteroscopy with laser lithotripsy and stent placement. 3.Pelvic displaced kidney. Principal Procedure: Right ESWL/extracorporeal shock wave lithotripsy. Indication For Procedure: Ms. Gamble is an 88-year-old woman, who presented via the emergency depart ment with acute kidney injury associated with an obstructing right ureteral calculus and large volume right nephrolithiasis. She underwent intervention with ureteroscopy with laser lithotripsy managing the ureteral calculi and a portion of her right nephrolithiasis, that given tortuosity of the ureter that made it difficult to access the lower pole collecting system and the stones present there, a si gnificant residual stone burden was identified on CT and confirmed on plain film. As a result, she w as counseled on an opportunity to manage the remainder of the stone noninvasively and elected to proc eed with ESWL. Procedure In Detail: The patient was consented in the preoperative holding area before being transfe rred to the operative suite where general anesthesia was induced. She was previously started on Leva ankur 500 mg p.o. daily on 05/01/2023, with a 10-day supply and instructions to take an additional dos e on the morning of surgery. The patient explained that she took an additional dose last night befor e she went to bed in addition to her morning dose which was around 10 a.m. As a result, no additiona l IV antimicrobial therapy was provided to the patient today. She was thus placed supine on the [facility] lithotripsy table with a water bath beneath her flank, and fluoroscopic imagery was used to tar get the stones. Initially, a calcified region in the typical position of the kidney of the upper abd omen was identified and shockwave lithotripsy was begun for a total of about 81 shocks at power of 4 before I called into question the lack of visibility of the stent, and we repositioned the shockwave lithotripsy further down into the pelvis where the defective kidney stone and stent were now visible, and appropriate targeting and shockwave lithotripsy was then continued. The power was increased ove r the course of 500 shocks from a power of 4 to a power of 6.5, and a 2-minute pause was given after around 250-300 shocks. Shock wave lithotripsy was continued with intermittent fluoroscopic imagery t o ensure adequate targeting throughout the course of the next 2500 shocks delivered before we backed the therapeutic head out to assess the appearance of the stone fragmentation, and while there was sig nificant evidence of stone fragmentation, there was evidence of significant residual stone dust in a cloud in that location. As a result, we targeted that cloud of dust and continued shock wave lithotr ipsy for the remaining 500 shocks for a total of 3000 shocks delivered before shockwave lithotripsy w as discontinued. The patient was then awakened from general anesthesia, transferred to a stretcher, and then transferred to the recovery room in good condition. Complications: None obvious. Discharge Disposition: She should follow up in the Urology Clinic within the next 3-5 weeks and obta in a KUB within a week of that followup appointment. It would also be to her benefit to have a urine culture completed 1-2 weeks prior to the followup appointment so that we can ensure the absence of o ngoing infection or begin treatment with antimicrobial therapy prior to anticipated right ureteral st ent extraction to be performed in the office with cystoscopic assistance. LAUREN/HANANE Voice ID: [id number] Report ID: [id number]
[2023-05-06 11:41] VITALS: BP 154/85; TEMP 97.6; O2SAT 97
== END 2023-05-06 11:32 | disposition home or self-care (01) ==
LOC: OR 07:59
PROVIDERS: ATTEND Urology
PROC: 0TF3XZZ Fragmentation in Right Kidney Pelvis, External Approach (ICD-10-PCS; principal; 2023-05-06 09:15)
DX: N20.0 Calculus of kidney (principal); I10 Essential (primary) hypertension
CPT/HCPCS: 93005; 87088; 85025; 87086; 80048; 36415; 85610; 87077; 87186; 71046; 50590; J2704; J2001; J3010; J2405; J7120; J0744

== ENCOUNTER 2023-07-15 06:37 | Day surgery (SDC) | payer OTHER ==
[2023-06-30 11:12] LABS: Absolute Eosinophils 0.1 K/uL (0-0.5); Absolute Lymphocytes (CBC) 2.2 K/uL (0.7-4.9); Absolute Monocytes 0.5 K/uL (0.1-1.3); Absolute Neutrophil 2.6 K/uL (1.8-8.0); Basophils % 0.5 % (0-1.3); Eosinophils % 1.2 % (0-4.4); Lymphocytes % 40.8 % (15.3-44.8); MCH 34.2 pg (27.0-35.0); MCHC 34.1 g/dL (32.0-36.0); MCV 100.3 fL (80-100); MPV 7.2 fL (7.6-11.3); Monocytes % 8.6 % (3.3-12.3); Neutrophils % 48.9 % (41.7-73.7); Nucleated Red Blood Cells % 0.1 % (0-0); Platelets 186 thou/uL (152-406); RBC Red Blood Cell Count 3.79 M/uL (3.86-4.86); Red Cell Distribution Width 13.5 % (12.1-15.2)
[2023-06-30 11:17] LABS: PT Prothrombin Time 11.8 SECONDS (9.5-12.5); Protime INR 1.07
[2023-06-30 11:26] LABS: Anion Gap 6.7 mEq/L (5.0-15.0); Potassium 3.7 mEq/L (3.5-5.1)
[2023-07-15] MEDS: Ringers Lactate 1,000 ML IV ONE (07:20)
[2023-07-15] MEDS ORDERED: CEFTRIAXONE 1000 MG/VIAL ONE (07:45)
[2023-07-15] MEDS ORDERED: NA CHLORIDE 0.9% 50 ML ONE (07:45)
[2023-07-15] MEDS: CEFTRIAXONE 1,000 MG in NA CHLORIDE 0.9% 50 ML IVPB ONE (08:00)
[2023-07-15] MEDS ORDERED: LIDOCAINE 1% MPF 5 ML VIAL ONE (08:04)
[2023-07-15] MEDS ORDERED: propofoL 200 MG/20 ML VIAL IV ONE (08:04)
[2023-07-15] MEDS ORDERED: FENTANYL CITR 100 MCG/2 ML ONE (08:04)
[2023-07-15] MEDS ORDERED: ONDANSETRON 4 MG/2 ML VIAL ONE (08:04)
[2023-07-15] MEDS ORDERED: ROCURONIUM 50 MG/5 ML VIAL IV ONE (08:29)
[2023-07-15] MEDS ORDERED: dexAMETHasone 10 MG/ML VIAL ONE (08:32)
[2023-07-15] MEDS ORDERED: NEOSTIGMINE 1 MG/ML -10 ML VIAL ONE (09:43)
[2023-07-15] MEDS ORDERED: GLYCOPYRROLATE 0.2 MG/ML SYR ONE (09:43)
[2023-07-15] MEDS ORDERED: HYDROCODONE/APAP 5/325 MG TAB PO PRN (10:36)
[2023-07-15] MEDS ORDERED: PHENAZOPYRIDINE 100MG TAB PO ONE (10:36)
--- NOTE | 2023-07-15 11:01 | RAD REPORT ---
EXAM DESCRIPTION: RAD - Urethrocystogrphy Retrograde - 07/15/2023 10:21 am CLINICAL HISTORY: STENT EXTRACTION COMPARISON: Urethrocystogrphy Retrograde dated 11/26/2022 FINDINGS/IMPRESSION: Approximately 75 intraoperative fluoroscopic images were submitted showing jeannette ulation of the right ureter for a right-sided ureteral stent exchange. No radiologist was available for the procedure, nor will any image interpretation be provided. Cyrus connell refer to the procedural report for additional details Fluoro time: 1.4 minutes Cumulative dose: 17.4 mGy
[2023-07-15] MEDS: ONDANSETRON 4 MG/2 ML VIAL ONE (11:40)
[2023-07-15 12:43] VITALS: BP 158/80; O2SAT 97
[2023-07-15 13:21] VITALS: TEMP 97
--- NOTE | 2023-07-15 20:03 | OP ---
Surgeon: VAHID LEMOS Preoperative Diagnoses: 1.Encrusted and retained right ureteral stent. 2.Recurrent complicated urinary tract infections. Postoperative Diagnoses: 1.Encrusted and retained right ureteral stent. 2.Recurrent complicated urinary tract infections. 3.Ptotic right kidney. 4.Right mid distal ureteral obstruction. 5.Weak detrusor tone/contractility. Principal Procedures: 1.Cystolitholapaxy using the holmium laser. 2.Ellik bladder irrigation and evacuation of stone materials. 3.Further fragmentation of stone using the stone hoistman device. 4.Right retrograde pyelography. 5.Right ureteroscopy with laser lithotripsy. 6.Complex right ureteral stent replacement. Indication For Procedure: Ms. Gamble is an 88-year-old woman who presented with an issue of recurren t and complicated urinary tract infections. The infections were proteus in nature and associated lik pipe with stone present within her right kidney. She also had some ureteral obstruction and underwent ureteroscopy with laser lithotripsy where I was only able to access the lower pole due to significan t ptosis of the right kidney and tortuosity of the ureter that made entry into the mid and upper pole calyces virtually impossible. Following that procedure, she underwent right ESWL to manage the eric ining stones within the mid pole calyces, and she presented in the office for right ureteral stent ex traction. Unfortunately, at that time, the stent was significantly encrusted and could not be remove d with her awake and operative evaluation and management was required. Because of her issues with re current infections, while she was asymptomatic, there was persistence of the proteus urinary tract in fection along with another organism that had a degree of resistance requiring 2 antimicrobials be giv en prior to surgery today. Ceftriaxone IV antimicrobial prophylaxis was provided prior to entry into the operating suite. Procedure In Detail: The patient was consented in the preoperative holding area before being transfe rred to the operative suite where general anesthesia was induced. As above, she had been given ceftr iaxone 1 g IV antimicrobial prophylaxis, and pneumo boots were provided for DVT prophylaxis. She was placed in the lithotomy position, padded and secured to the table appropriately, and her genitalia w ere prepped with Hibiclens before being draped in standard fashion. The case was begun using the 22- Emirati rigid cystoscope to traverse the urethra and into the bladder. The bladder was decompressed o f fluid and urine and refilled with sterile saline. The stent was noted emanating from the right ure teral orifice and was significantly encrusted. Efforts to use the alligator grasper to remove some o f the encrustation and thus be able to remove the stent were thwarted due to the degree of encrustati on. As a result, I utilized a 262 nm laser fiber at a power setting of 1 joule and 25 hertz to fragm ent a significant degree of the encrustation off the coil of the stent up until where it entered the ureteral orifice. At this point, I was able to then use an alligator grasper to grasp the tip of the stent and deliver it to the meatus. The proximal coil of the stent did unfurl mostly and delivered down into the mid ureter before there was a degree of resistance. At this point, I utilized the cyst oscope, inserted into the bladder alongside the stent hanging from her urethra and intubated the uret eral orifice alongside the stent with a 5-Emirati ureteral access catheter. Right retrograde pyelography: Using a 70:30 mixture of Omnipaque and saline, I injected the contrast via the lumen of the 5-Emirati ureteral access catheter and it did propagate up the distal into the m id distal ureter where a point of obstruction was encountered and the contrast pulled in that locatio n. I was able to advance the 5-Emirati ureteral access catheter up to and beyond this point of obstru ction and inject contrast further, which did eventually propagate up into the proximal ureter and bey ond a point of significant tortuosity within the proximal ureter at the UPJ before entering the renal pelvis where there was significant ptosis evident. Contrast did enter the pelvis and collecting sys tem and calyces. As a result, I utilized a Sensor wire, which I tried to navigate with some difficul ty beyond the point of tortuosity, but simply to advance the 5-Emirati ureteral access catheter beyond the tip of the retained stent into the proximal ureter. At this point, with the 5-Emirati ureteral a ccess catheter in place, sort of as a safety wire, I was able to remove the remainder of the encruste d stent with ease. There was some mild encrustation of a portion of the proximal coil. A repeat ret rograde pyelographic assessment revealed no evidence of ureteral extravasation, but 2 areas of dilati on of the ureter with some stasis of contrast in those locations, potential point of obstruction. I then, using the 5-Emirati ureteral access catheter in place, navigated a Sensor wire with some difficu lty beyond the tortuous proximal ureter ultimately into the renal pelvis. I advanced a 5-Emirati uret eral access catheter over the Sensor wire into the renal pelvis and placed a Superstiff wire exchangi ng it for the Sensor wire in order to try to straighten out the tortuosity of the ureter and decrease the ptosis present. I then utilized a dual-lumen catheter placed over the Super Stiff wire into the mid proximal ureter and again injected contrast to confirm appropriate localization of the safety wi re before passing a Bentson guidewire into the proximal ureter and renal pelvis. I passed a ureteral access sheath, 12 x 14-Emirati, into the mid distal ureter and advanced it into the mid proximal uret er where it would not enter the renal pelvis due to the significant tortuosity present. As a result, leaving the Bentson guidewire in place, I advanced the flexible ureteroscope over the Bentson guidew luís beyond the tip of the ureteral access sheath and into the proximal ureter. Again, significant to rtuosity was observed, but I encountered several formed calculi fragments that were likely from the p roximal coil of the encrusted stent. I thus utilized the laser fiber at a power setting of 1 joule a nd 15 hertz to fragment that encrustation to dust that would pass alongside the ureteroscope and out of the ureteral access sheath. I then attempted to navigate the scope using pressurized irrigation b eyond the point of proximal ureteral tortuosity and with great difficulty, I was able to navigate and finally enter the lower pole calyx of the right kidney. There, I encountered several small calculi fragments, likely present from the prior shockwave lithotripsy and ureteroscopy. As a result, I util ized the laser fiber at a power setting of 1.2 joules and 25 hertz to dust those stone fragments unti l the dust fragments were smaller than the size of the laser fiber of 262 nm. After the stone fragme nts were significantly dusted, I noted some abrupt movement of the laser fiber where it would advance despite no manual advancement of the fiber and the fiber being adequately secured in position at the level of the ureteroscope, and it turns out the fiber had broken owing to the multiple twists in the ureteroscope required to enter the renal pelvis and the lower pole calyx. This did result in laser damage to the scope that was apparent later. The fragment had indeed broken and approximately 3 to 4 inch piece was hanging out of the tip of the ureteroscope. I thus backed the ureteroscope into the ureteral access sheath where the fragment of the wire came with it and then became lodged within the ureteral access sheath. I utilized an alligator grasper, placed within the flexible ureteroscope to attempt to grasp this wire tip, but ultimately, I had to remove the entirety of the ureteral access s [place] along with the ureteroscope in order to remove the fragment of the laser fiber left behind. Th is was indeed collected and removed. At this point, I attempted to use a dual-lumen catheter to pass a [employer] guidewire back into the collecting system, but there was evident ureteral spasm that prohi bited the wire gaining access again into the collecting system despite multiple attempts. So I ultim ately had to switch the Super Stiff wire over a 5-Emirati ureteral access catheter for a Sensor wire, which apparently was passed into the collecting system and the lower pole calyx. Over that wire, I w as able to pass a 6-Emirati x 26 cm double-J ureteral stent with a coil observed fluoroscopically in w hat appeared to be lower pole calyx. Unfortunately, the renal pelvis and calyces did not seem to dec ompress as I would have expected despite attempts to decompress the bladder; so I questioned the appr opriate positioning of the stent. A repeat evaluation was performed by placing a 5-Emirati ureteral a ccess catheter next to the stent and again performing a retrograde pyelography study where I again wa s not convinced that the stent was in appropriate position. Eventually, I grasped the tip of the tet her to the stent and delivered it to the meatus and I passed a Sensor wire via the stent, this time c oiling it in a much better position within the mid pole calyces of the right kidney and the renal pel vis. I then backloaded the cystoscope over the wire that had been replaced and was able to pass the 6-Emirati x 26 cm double-J ureteral stent under direct vision into what was apparently nicely within t he opacified renal pelvis in the mid pole region of the right kidney. An additional coil was formed cystoscopically within her bladder. I then turned my attention back to the calculi fragments left wi thin the bladder that had been removed off the stent. Using the stone hoistman device and the Ellik evacuator, I removed as much of the dust that would come out on its own before having to use the stone hoistman device to fragment the remaining fragments sma ll enough to be able to Ellik evacuate them. Several episodes of Ellik evacuation were required befo re ultimately all of the significant fragments had been removed, and with the stent in good position and the fragments removed from her bladder, I decompressed her bladder of fluid and urine and removed the cystoscope. She was then taken out of the lithotomy position, awakened from general anesthesia, transferred to a stretcher, and then transferred to the recovery room in good condition. Complications: None. Discharge Disposition: I would like her to follow up in about 3 weeks' time for cystoscopy and right ureteral stent extraction in the office. One week prior, she should be seen in the office for a lucretia sing visit to collect her urine for culture. This is likely best done via straight cath given her po tential for recurrent infections and unlikelihood of being able to develop or to produce a clean-catc h urine specimen. After removal of the stent, we will arrange a renal ultrasound subsequently to aria coulter for persistent hydronephrosis owing to the ptosis or the areas of ureteral obstruction that walter connell observed on today's evaluation. Subsequently, she will require definitive metabolic stone profile assessment to decrease her risk of future stone forming event. She will also require therapy to asse ss her risk of recurrent UTIs associated with her incomplete bladder emptying. LAUREN/ANGELIQUEL Voice ID: [id number] Report ID: [id number]
== END 2023-07-15 12:25 | disposition home or self-care (01) ==
LOC: OR 06:37
PROVIDERS: ATTEND Urology
PROC: 0T768DZ Dilation of Right Ureter with Intraluminal Device, Via Natural or Artificial Opening Endoscopic (ICD-10-PCS; 2023-07-15)
PROC: 0TC68ZZ Extirpation of Matter from Right Ureter, Via Natural or Artificial Opening Endoscopic (ICD-10-PCS; 2023-07-15)
PROC: 0TCB8ZZ Extirpation of Matter from Bladder, Via Natural or Artificial Opening Endoscopic (ICD-10-PCS; principal; 2023-07-15 08:15)
DX: N13.5 Crossing vessel and stricture of ureter without hydronephrosis (principal); N20.0 Calculus of kidney; N28.83 Nephroptosis; N31.9 Neuromuscular dysfunction of bladder, unspecified; Z87.440 Personal history of urinary (tract) infections
CPT/HCPCS: 52318; 52353; 87088; 85025; 87086; 80048; 36415; 85610; 88300; 87077 ×2; 87186 ×2; 74450; 51610; J2704; J2710; J2001; J3010; J1100; J2405 ×2; J7120; J0696; Q9967